=== PATIENT | male | born 1950 | race Caucasian/White ===

== ENCOUNTER 2017-05-08 19:05 | Inpatient (IN) | payer OTHER ==
[2017-05-08 19:10] VITALS: BMI 25.8
--- NOTE | 2017-05-08 20:22 | PDOC ---
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 The patient is nonverbal, but has no complaints and does not appear to be in acute distress. Denies smoking or drinking. Denies allergies, sick contacts, recent travel. PCP: Dr. Shante Alfred <Cynthia Cardenas - Last Filed: 05/08/17 22:56> - General History Source: Patient <Del Rowley - Last Filed: 05/08/17 23:54> - General Chief Complaint: Weakness Stated Complaint: VOMITING,WEAKNESS Time Seen by Provider: 05/08/17 20:19 Past History <Cynthia Cardenas - Last Filed: 05/08/17 22:56> - Past Medical History HTN: Yes Other medical history: MENTAL RETARDATION - Psycho/Social/Smoking Cessation Hx Suicidal Ideation: No Smoking History: Never smoked Hx Alcohol Use: No Drug/Substance Use Hx: No Substance Use Type: None <Del Rowley - Last Filed: 05/08/17 23:54> - Past Medical History Allergies/Adverse Reactions: Allergies Allergy/AdvReac Type Severity Reaction Status Date / Time No Known Allergies Allergy Verified 05/08/17 21:06 Home Medications: Ambulatory Orders NK [No Known Home Medication] 05/08/17 Review of Systems - Review of Systems Able to Perform ROS?: No (mental retardation, nonve) <Cynthia Cardenas - Last Filed: 05/08/17 22:56> *Physical Exam - Vital Signs Last Vital Signs Temp Pulse Resp BP Pulse Ox 97.9 F 114 H 20 138/86 99 05/08/17 19:06 05/08/17 19:06 05/08/17 19:06 05/08/17 19:06 05/08/17 20:04 - Physical Exam Comments: 05/08/17 20:51 GENERAL: Well-appearing, well-nourished. No apparent distress. Alert, awake, interactive. HEENT: Normocephalic, atraumatic. PERRL, EOM intact. CARDIOVASCULAR: Normal S1, S2. Regular rate and rhythm. PULMONARY: Clear to auscultation bilaterally. ABDOMEN: Soft, non-distended, non-tender. EXTREMITIES: Normal ROM in all four extremities. No gross deformities. SKIN: Warm, dry. No rash NEUROLOGICAL: No focal neurological deficits. <Cynthia Cardenas - Last Filed: 05/08/17 22:56> - Vital Signs Last Vital Signs Temp Pulse Resp BP Pulse Ox 97.9 F 114 H 20 138/86 99 05/08/17 19:06 05/08/17 19:06 05/08/17 19:06 05/08/17 19:06 05/08/17 20:04 <Del Rowley - Last Filed: 05/08/17 23:54> Heart Score/ECG Review #1 05/08/17 21:28 Sinus bradycardia with marked sinus arrhythmia at 57 bpm. Minimal voltage criteria for LVH, may be normal variant. <Cynthia Cardenas - Last Filed: 05/08/17 22:56> ED Treatment Course - LABORATORY CBC & Chemistry Diagram: 05/08/17 20:41 05/08/17 20:41 - RADIOLOGY Radiograph Interpretation: 05/08/17 22:56 Chest X-Ray Reported by Dr. Yeison Medina Impression: No acute disease. - Medications Given in the ED: ED Medications Discontinued Medications Generic Name Dose Route Start Last Admin Trade Name Tristinq PRN Reason Stop Dose Admin Ondansetron HCl 4 mg 05/08/17 20:24 05/08/17 20:39 Zofran Injection IVPUSH 05/08/17 20:25 4 mg ONCE STA Administration <Cynthia Cardenas - Last Filed: 05/08/17 22:56> - LABORATORY CBC & Chemistry Diagram: 05/08/17 20:41 05/08/17 20:41 <Del Rowley - Last Filed: 05/08/17 23:54> Medical Decision Making - Medical Decision Making 05/08/17 22:[address] Leann Martino at [phone]. Dr. Shante Alfred is production staff worker and will call back. <Cynthia Cardenas - Last Filed: 05/08/17 22:56> - Medical Decision Making 05/08/17 22:26 Dr. Rowley: The scribe's documentation has been prepared under my direction and personally reviewed by me in its entirery. I confirm that the note above accurately reflects all work, treatment, procedures, and medical decision making performed by me. spoke to Dr. Glynn who will give admitting orders for patient's admission. <Del Rowley - Last Filed: 05/08/17 23:54> *DC/Admit/Observation/Transfer - Attestations Scribe Attestion: 05/08/17 20:51 Documentation prepared by Cynthia Cardenas, acting as medical consultant for Del Rowley DO. <Cynthia Cardenas - Last Filed: 05/08/17 22:56> - Discharge Dispostion Admit: Yes <Del Rowley - Last Filed: 05/08/17 23:54> Diagnosis at time of Disposition: Pancreatitis Qualifiers: Chronicity: acute Pancreatitis type: other Acute pancreatitis complication: unspecified Qualified Code(s): K85.80 - Other acute pancreatitis without necrosis or infection - Discharge Dispostion Condition at time of disposition: Stable - Referrals
[2017-05-08] MEDS ORDERED: SODIUM CHLORIDE 1,000 ML IV STA (20:23)
[2017-05-08] MEDS ORDERED: ONDANSETRON 4 MG/2 ML VIAL IVPUSH STA (20:24)
[2017-05-08] MEDS ORDERED: ONDANSETRON 4 MG/2 ML VIAL ONE (20:53)
[2017-05-08 21:23] LABS: BASOPHIL 0.1 % (0-2.0); MCH 28.9 pg (25.7-33.7); MCHC 33.1 g/dl (32.0-35.9); MEAN CELL VOLUME 87.2 fl (80-96); MEAN PLT VOLUME 10.2 fl (7.5-11.1); NEUTROPHILS 92.9 % (42.8-82.8); PLATELET COUNT 213 K/MM3 (134-434); RDW 12.6 % (11.9-15.9); WHITE BLOOD COUNT 18.5 K/mm3 (4.0-10.0)
[2017-05-08 21:38] LABS: INR 1.11 (0.82-1.09); PROTHROMBIN TIME (PATIENT) 12.2 SEC (9.98-11.88)
[2017-05-08 21:41] LABS: URINE APPEARANCE CLEAR; URINE BILIRUBIN NEGATIVE (NEGATIVE); URINE BLOOD NEGATIVE (NEGATIVE); URINE COLOR YELLOW; URINE GLUCOSE (UA) NEGATIVE (NEGATIVE); URINE KETONE NEGATIVE (NEGATIVE); URINE LEUK ESTERASE NEGATIVE (NEGATIVE); URINE NITRITE NEGATIVE (NEGATIVE); URINE PROTEIN NEGATIVE (NEGATIVE); URINE UROBILINOGEN NEGATIVE mg/dL (0.2-1.0)
[2017-05-08 21:53] LABS: MAGNESIUM 2.4 mg/dL (1.8-2.4)
[2017-05-08 22:03] LABS: ALBUMIN 4.6 g/dl (3.4-5.0); ALK PHOS 100 U/L (45-117); AMYLASE 796 U/L (25-115); ANION GAP 12 (8-16); BILIRUBIN,TOTAL 0.8 mg/dL (0.2-1.0); CALCIUM 9.7 mg/dL (8.5-10.1); CO2 28 mmol/L (21-32); CREATININE 1.1 mg/dL (0.7-1.3); GLUCOSE,RANDOM 141 mg/dL (74-106); SGOT/AST 22 U/L (15-37); SGPT/ALT 16 U/L (12-78); TOT PROT 8.4 g/dl (6.4-8.2); TROPONIN I < 0.02 ng/ml (0.00-0.05)
[2017-05-08] MEDS ORDERED: ACETAMINOPHEN 1000 MG/100 ML VIAL (NON FORMULARY) IVPB PRN (22:23)
[2017-05-08] MEDS ORDERED: morphine CARPU-JECT 4 MG/1 ML DISP.SYRIN IVPUSH PRN (22:23)
[2017-05-08] MEDS ORDERED: DEXTROSE 5%-NORMAL SALINE 1,000 ML IV SCH (22:30)
[2017-05-08] MEDS ORDERED: PANTOPRAZOLE SODIUM 100 ML IVPB SCH (22:30)
[2017-05-08] MEDS ORDERED: LEVOFLOXACIN 500 MG IVPB 100 ML IVPB STA (22:41)
[2017-05-08] MEDS: METRONIDAZOLE 500 MG PREMIXED 100 ML IVPB SCH (22:43)
[2017-05-08] MEDS ORDERED: PANTOPRAZOLE SODIUM 40 MG VIAL ONE (22:46)
[2017-05-08] MEDS ORDERED: METRONIDAZOLE 500 MG PREMIXED 100 ML IVPB ONE (22:46)
[2017-05-08] MEDS ORDERED: LORazepam 2 MG/ML SDV VIAL ONE (22:47)
[2017-05-08 23:12] LABS: ACETONE SERUM NEGATIVE (NEGATIVE)
[2017-05-09] MEDS: LEVOFLOXACIN 500 MG IVPB 100 ML IVPB SCH ×2 (00:31→11:17)
[2017-05-09] MEDS ORDERED: LEVOFLOXACIN 500 MG IVPB 100 ML IVPB ONE (00:39)
[2017-05-09] MEDS: METRONIDAZOLE 500 MG PREMIXED 100 ML IVPB SCH ×3 (03:28→18:02)
--- NOTE | 2017-05-09 08:43 | HP ---
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 The patient is nonverbal, but has no complaints and does not appear to be in acute distress. Denies smoking or drinking. Denies allergies, sick contacts, recent travel. - Past Medical History Cardiovascular: No: CHF, HTN Pulmonary: No: Asthma, COPD - Smoking History Smoking history: Never smoked - Alcohol/Substance Use Hx Alcohol Use: No Home Medications - Allergies Allergies/Adverse Reactions: Allergies Allergy/AdvReac Type Severity Reaction Status Date / Time No Known Allergies Allergy Verified 05/08/17 21:06 - Home Medications Home Medications: Ambulatory Orders NK [No Known Home Medication] 05/08/17 Review of Systems - Review of Systems Cardiovascular: denies: Chest Pain Respiratory: reports: No Symptoms Gastrointestinal: reports: Abdominal Pain, Nausea, Vomiting Genitourinary: reports: No Symptoms Physical Examination Vital Signs: Vital Signs Temperature 98.9 F 05/09/17 04:45 Pulse Rate 89 05/09/17 04:45 Respiratory Rate 18 05/09/17 04:45 Blood Pressure 128/83 05/09/17 04:45 O2 Sat by Pulse Oximetry (%) 97 05/09/17 04:45 Cardiovascular: Yes: Regular Rate and Rhythm, Murmur Respiratory: Yes: Regular, CTA Bilaterally Gastrointestinal: Yes: Normal Bowel Sounds, Soft Edema: No Imaging - Results Cat Scan: Report Reviewed EKG: Report Reviewed Problem List - Problems (1) Choledocholithiasis with acute cholecystitis Assessment/Plan: IV ABX ID/GI AND SURGICAL CONASULT NPO IVF Code(s): K80.42 - CALCULUS OF BILE DUCT W ACUTE CHOLECYSTITIS W/O OBSTRUCTION (2) Gallstone pancreatitis Assessment/Plan: ABOVE Code(s): K85.10 - BILIARY ACUTE PANCREATITIS WITHOUT NECROSIS OR INFECTION (3) Pancreatitis Code(s): K85.90 - ACUTE PANCREATITIS WITHOUT NECROSIS OR INFECTION, UNSP Qualifiers: Chronicity: acute Pancreatitis type: other Acute pancreatitis complication: unspecified Qualified Code(s): K85.80 - Other acute pancreatitis without necrosis or infection; K85.8 - Other acute pancreatitis (4) Arrhythmia Assessment/Plan: TFT ECHO HOLTER Code(s): I49.9 - CARDIAC ARRHYTHMIA, UNSPECIFIED
--- NOTE | 2017-05-09 09:25 | CONSULT ---
Consult Consult Specialty:: Surgery Reason for Consultation:: Gallstone pancreatitis, choledocholithiasis - History of Present Illness Chief Complaint: Fevers, weakness, abdominal pain History of Present Illness: 66 male with history of mental retardation brought by his brother for fevers and weakness Some epigastric pain/discomfort None currently No nausea/vomiting - History Source History Provided By: Family Member, Medical Record Limitations to Obtaining History: Clinical Condition - Past Medical History Additional Medical History: Mental retardation - Alcohol/Substance Use Hx Alcohol Use: No - Smoking History Smoking history: Never smoked Home Medications - Allergies Allergies/Adverse Reactions: Allergies Allergy/AdvReac Type Severity Reaction Status Date / Time No Known Allergies Allergy Verified 05/08/17 21:06 - Home Medications Home Medications: Ambulatory Orders NK [No Known Home Medication] 05/08/17 Family Disease History - Family Disease History Family History: Unremarkable Review of Systems Unable to obtain ROS, reason: Mental retardation Physical Exam Vital Signs: Vital Signs Temperature 98.9 F 05/09/17 04:45 Pulse Rate 89 05/09/17 04:45 Respiratory Rate 18 05/09/17 04:45 Blood Pressure 128/83 05/09/17 04:45 O2 Sat by Pulse Oximetry (%) 97 05/09/17 04:45 Constitutional: Yes: Calm Neck: Yes: Supple Cardiovascular: Yes: Regular Rate and Rhythm Respiratory: Yes: Regular Gastrointestinal: Yes: Soft, Tenderness (Mild RUQ). No: Distention, Tenderness , Rebound Neurological: Yes: Alert Labs: CBCD WBC 18.5 K/mm3 (4.0-10.0) H 05/08/17 20:41 RBC 5.24 M/mm3 (4.00-5.60) 05/08/17 20:41 Hgb 15.1 GM/dL (11.7-16.9) 05/08/17 20:41 Hct 45.7 % (35.4-49) 05/08/17 20:41 MCV 87.2 fl (80-96) 05/08/17 20:41 MCHC 33.1 g/dl (32.0-35.9) 05/08/17 20:41 RDW 12.6 % (11.9-15.9) 05/08/17 20:41 Plt Count 213 K/MM3 (134-434) 05/08/17 20:41 MPV 10.2 fl (7.5-11.1) 05/08/17 20:41 CMP Sodium 140 mmol/L (136-145) 05/08/17 20:41 Potassium 3.9 mmol/L (3.5-5.1) 05/08/17 20:41 Chloride 100 mmol/L (98-107) 05/08/17 20:41 Carbon Dioxide 28 mmol/L (21-32) 05/08/17 20:41 Anion Gap 12 (8-16) 05/08/17 20:41 BUN 14 mg/dL (7-18) 05/08/17 20:41 Creatinine 1.1 mg/dL (0.7-1.3) 05/08/17 20:41 Creat Clearance w eGFR > 60 (>60) 05/08/17 20:41 Calcium 9.7 mg/dL (8.5-10.1) 05/08/17 20:41 Total Bilirubin 0.8 mg/dL (0.2-1.0) 05/08/17 20:41 AST 22 U/L (15-37) 05/08/17 20:41 ALT 16 U/L (12-78) 05/08/17 20:41 Alkaline Phosphatase 100 U/L (45-117) 05/08/17 20:41 Total Protein 8.4 g/dl (6.4-8.2) H 05/08/17 20:41 Albumin 4.6 g/dl (3.4-5.0) 05/08/17 20:41 Amylase 796 Lipase 6453 Imaging - Results Cat Scan: Report Reviewed, Image Reviewed Problem List - Problems (1) Gallstone pancreatitis Code(s): K85.10 - BILIARY ACUTE PANCREATITIS WITHOUT NECROSIS OR INFECTION (2) Choledocholithiasis with acute cholecystitis Code(s): K80.42 - CALCULUS OF BILE DUCT W ACUTE CHOLECYSTITIS W/O OBSTRUCTION Assessment/Plan 66 male with biliary pancreatitis and choledocholithiasis U/S ordered NPO IV fluids Antibiotics GI for ERCP Will need cholecystectomy once CBD stone removed and pancreatitis resolves Thank you
[2017-05-09 09:41] LABS: BASOPHIL 0.1 % (0-2.0); EOSINOPHIL 0.1 % (0-4.5); MCH 29.7 pg (25.7-33.7); MCHC 33.9 g/dl (32.0-35.9); MEAN CELL VOLUME 87.4 fl (80-96); MEAN PLT VOLUME 9.8 fl (7.5-11.1); NEUTROPHILS 88.2 % (42.8-82.8); PLATELET COUNT 186 K/MM3 (134-434); RDW 12.6 % (11.9-15.9); WHITE BLOOD COUNT 13.4 K/mm3 (4.0-10.0)
[2017-05-09] MEDS ORDERED: LEVOFLOXACIN 500 MG IVPB 100 ML IVPB SCH (10:00)
[2017-05-09 10:08] LABS: ALBUMIN 3.5 g/dl (3.4-5.0); ALK PHOS 92 U/L (45-117); AMYLASE 437 U/L (25-115); ANION GAP 7 (8-16); BILIRUBIN,TOTAL 0.7 mg/dL (0.2-1.0); CALCIUM 8.8 mg/dL (8.5-10.1); CO2 26 mmol/L (21-32); CREATININE 0.9 mg/dL (0.7-1.3); GLUCOSE,RANDOM 135 mg/dL (74-106); SGOT/AST 39 U/L (15-37); SGPT/ALT 28 U/L (12-78); TOT PROT 6.9 g/dl (6.4-8.2)
[2017-05-09 10:22] LABS: CHOLESTEROL 99 mg/dL (50-200); LDL CHOLESTEROL (ONLY SJRH) 57 mg/dL (5-100)
--- NOTE | 2017-05-09 11:52 | EKG ---
Test Reason : Blood Pressure : / mmHG Vent. Rate : 057 BPM Atrial Rate : 057 BPM P-R Int : 140 ms QRS Dur : 098 ms QT Int : 470 ms P-R-T Axes : 047 006 014 degrees QTc Int : 457 ms SINUS BRADYCARDIA WITH MARKED SINUS ARRHYTHMIA MINIMAL VOLTAGE CRITERIA FOR LVH, MAY BE NORMAL VARIANT BORDERLINE ECG NO PREVIOUS ECGS AVAILABLE Confirmed by LUIS ARMANDO RODRIGUEZ MD ([id number]) on 05/09/2017 11:52:24 AM Referred By: Confirmed By:LUIS ARMANDO RODRIGUEZ MD
[2017-05-09] MEDS ORDERED: PANTOPRAZOLE SODIUM 40 MG VIAL ONE ×2 (13:02→21:25)
[2017-05-09] MEDS ORDERED: SODIUM CHLORIDE 100 ML IVPB ONE ×2 (13:02→21:26)
[2017-05-09] MEDS: PANTOPRAZOLE SODIUM 40 MG in SODIUM CHLORIDE 100 ML IVPB SCH ×2 (13:07→21:43)
[2017-05-09] MEDS ORDERED: CEFTRIAXONE 50 ML IVPB SCH (14:15)
[2017-05-09] MEDS ORDERED: CEFTRIAXONE 1 GM in DEXTROSE 5%-WATER - 50 ML IVPB SCH (14:50)
[2017-05-09] MEDS ORDERED: cefTRIAXone SODIUM 1 GM VIAL ONE (14:52)
[2017-05-09] MEDS ORDERED: DEXTROSE 5%-WATER - 50 ML IVPB ONE (14:53)
[2017-05-09 15:00] LABS: FREE T4 1.51 ng/dl (0.76-1.16)
--- NOTE | 2017-05-09 17:30 | CON.GI ---
Consult Consult Specialty:: gastroenterology Referred by:: Dr Leann Martino - History of Present Illness History of Present Illness: 66 y/o male with mental retasrdation was admitted because of abdominal pain and vomiting. Catscan was done which revealed a 2.5cm CBD associated with cholelithiasis. Tonight the patient feels better. - Past Medical History Cardio/Vascular: No: CHF, HTN Pulmonary: No: Asthma, COPD Additional Medical History: Mental retardation - Alcohol/Substance Use Hx Alcohol Use: No - Smoking History Smoking history: Never smoked Home Medications - Allergies Allergies/Adverse Reactions: Allergies Allergy/AdvReac Type Severity Reaction Status Date / Time No Known Allergies Allergy Verified 05/08/17 21:06 - Home Medications Home Medications: Ambulatory Orders NK [No Known Home Medication] 05/08/17 Review of Systems Unable to obtain ROS, reason: mental retardation Physical Exam-GI Vital Signs: Vital Signs Temperature 99.3 F 05/09/17 15:39 Pulse Rate 88 05/09/17 15:39 Respiratory Rate 18 05/09/17 15:39 Blood Pressure 127/82 05/09/17 10:00 O2 Sat by Pulse Oximetry (%) 97 05/09/17 09:00 Constitutional: Yes: Well Nourished Eyes: Yes: Conjunctiva Clear HENT: Yes: Atraumatic Neck: Yes: Trachea Midline Cardiovascular: Yes: Regular Rate and Rhythm ...Palpate: Yes: Soft. No: Firm/Rigid, Guarding, Hepatomegaly, Mass, Pulsatile Mass, Splenomegaly, Tenderness Labs: CBC, BMP 05/09/17 08:50 05/09/17 08:50 INR, PTT INR 1.11 (0.82-1.09) 05/08/17 20:41 Imaging - Results Cat Scan: Image Reviewed Problem List - Problems (1) Dilated bile duct Assessment/Plan: r/o ampullary mass, cbd stone R> for ERC , risk of bleeding, pancreatitis were discussed with patient s brother Code(s): K83.8 - OTHER SPECIFIED DISEASES OF BILIARY TRACT
[2017-05-09 18:55] LABS: URINE APPEARANCE CLEAR; URINE BILIRUBIN NEGATIVE (NEGATIVE); URINE BLOOD 1+ (NEGATIVE); URINE COLOR YELLOW; URINE GLUCOSE (UA) NEGATIVE (NEGATIVE); URINE KETONE NEGATIVE (NEGATIVE); URINE LEUK ESTERASE TRACE (NEGATIVE); URINE NITRITE NEGATIVE (NEGATIVE); URINE PROTEIN NEGATIVE (NEGATIVE); URINE UROBILINOGEN NEGATIVE mg/dL (0.2-1.0)
[2017-05-09 19:06] LABS: URINE MUCUS RARE; URINE RBC 3 /hpf (0-3); URINE WBC 2 /hpf (3-5)
[2017-05-09] MEDS: D5-1/2NS+30 MEQ KCL - 1,000 ML IV SCH (22:35)
[2017-05-10] MEDS: METRONIDAZOLE 500 MG PREMIXED 100 ML IVPB SCH ×2 (01:28→10:27)
--- NOTE | 2017-05-10 08:07 | CONS ---
DATE OF CONSULTATION: HISTORY: This is a 66-year-old male who I am asked to see for evaluation of gallstone pancreatitis and choledocholithiasis. The patient was admitted with a chief complaint of fevers, generalized weakness, and abdominal pain mostly in the epigastric area. He had no associated nausea or vomiting. He had an admitting white count of 18.5 on admission in the absence of any temperature. He was seen in consultation by Dr. Pereira and had an abdominal CT scan performed, which showed moderate acute pancreatitis with secondary duodenal inflammation and probable mild cholecystitis. Significant common bile duct distention with a moderate degree of intrahepatic biliary dilatation was also noted. An abdominal ultrasound showed multiple gallstones in the gallbladder with intrahepatic biliary dilatation. The patient was empirically placed on levofloxacin and metronidazole. I am asked to see him for further evaluation and treatment. He has had no fever since admission. PAST MEDICAL HISTORY: Includes hypertension, mental retardation. MEDICATIONS: At home, none. ALLERGIES: None known. SOCIAL HISTORY: Lives with his family. Nonsmoker. No history of substance abuse. FAMILY HISTORY: Unobtainable. REVIEW OF SYSTEMS: Respiratory: No cough or shortness of breath. Cardiac: No chest pain or palpitations. Gastrointestinal: Abdominal pain as noted. Genitourinary: No dysuria, hematuria. PHYSICAL EXAMINATION: Vital Signs: The patient is afebrile. The temperature is 98.9, pulse 89, blood pressure 128/83, respirations 18. Neck: Supple. Lungs: Clear to P and A. Heart: S1, S2. Regular rhythm without audible murmur. Abdomen: Tenderness mild in the right upper quadrant. No distention. No rebound tenderness. No organomegaly. Extremities: No clubbing, cyanosis, or edema. The white count is 18.5, hemoglobin 15.1, platelets 213. INR 1.1, BUN 14, creatinine 0.9. Liver enzymes within normal limits. Lipase 2400, on admission 6400. Total amylase 756. Urine screening negative. Two sets of blood cultures pending. ASSESSMENT: A 66-year-old male who presents with abdominal pain, fever, leukocytosis. Clinical diagnosis: Gallstone pancreatitis with acute cholecystitis. PLAN: Empiric antibiotic therapy with cefoxitin and metronidazole. Plan for ERCP and ultimately cholecystectomy once common bile duct stone removed and pancreatitis resolves. VEENA BALES M.D. CLAUS/[id number]
[2017-05-10 08:27] LABS: ALBUMIN 3.2 g/dl (3.4-5.0); AMYLASE 182 U/L (25-115); ANION GAP 9 (8-16); CALCIUM 8.3 mg/dL (8.5-10.1); CO2 26 mmol/L (21-32); GLUCOSE,RANDOM 117 mg/dL (74-106)
[2017-05-10 08:30] LABS: ALK PHOS 79 U/L (45-117); BILIRUBIN,TOTAL 0.9 mg/dL (0.2-1.0); CREATININE 0.9 mg/dL (0.7-1.3); SGOT/AST 22 U/L (15-37); SGPT/ALT 22 U/L (12-78); TOT PROT 6.3 g/dl (6.4-8.2)
--- NOTE | 2017-05-10 08:48 | PN ---
Progress Note, Physician - Current Medication List Current Medications: Active Medications Pantoprazole Sodium 40 mg/ (Sodium Chloride) 100 mls @ 200 mls/hr IVPB BID LUBNA Last Admin: 05/09/17 21:43 Dose: 200 mls/hr Metronidazole (Flagyl 500mg Premixed Ivpb -) 100 mls @ 100 mls/hr IVPB Q8H-IV LUBNA Last Admin: 05/10/17 01:28 Dose: 100 mls/hr Ceftriaxone Sodium 1 gm/ (Dextrose) 50 mls @ 100 mls/hr IVPB DAILY LUBNA Potassium Chloride/Dextrose/Sod Cl (D5-1/2ns+30 Meq Kcl -) 1,000 mls @ 100 mls/ hr IV ASDIR LUBNA Last Admin: 05/09/17 22:35 Dose: 100 mls/hr Lorazepam (Ativan Injection -) 1 mg IVPUSH Q6H PRN PRN Reason: ANXIETY Morphine Sulfate (Morphine Injection -) 4 mg IVPUSH Q6H PRN PRN Reason: PAIN - Objective Vital Signs: Vital Signs Temperature 98.9 F 05/10/17 06:11 Pulse Rate 74 05/10/17 06:11 Respiratory Rate 20 05/10/17 06:11 Blood Pressure 124/82 05/10/17 06:11 O2 Sat by Pulse Oximetry (%) 98 05/09/17 21:00 Cardiovascular: Yes: Regular Rate and Rhythm Respiratory: Yes: Regular, CTA Bilaterally Gastrointestinal: Yes: Normal Bowel Sounds, Soft Labs: CBC, BMP 05/10/17 06:40 INR, PTT INR 1.11 (0.82-1.09) 05/08/17 20:41 Problem List - Problems (1) Choledocholithiasis with acute cholecystitis Assessment/Plan: IV ABX ID/GI AND SURGICAL CONASULT NPO IVF Code(s): K80.42 - CALCULUS OF BILE DUCT W ACUTE CHOLECYSTITIS W/O OBSTRUCTION (2) Gallstone pancreatitis Assessment/Plan: ABOVE ERCP Code(s): K85.10 - BILIARY ACUTE PANCREATITIS WITHOUT NECROSIS OR INFECTION (3) Pancreatitis Assessment/Plan: ABOVE Code(s): K85.90 - ACUTE PANCREATITIS WITHOUT NECROSIS OR INFECTION, UNSP Qualifiers: Chronicity: acute Pancreatitis type: other Acute pancreatitis complication: unspecified Qualified Code(s): K85.80 - Other acute pancreatitis without necrosis or infection; K85.8 - Other acute pancreatitis (4) Arrhythmia Assessment/Plan: TFT ECHO HOLTER Code(s): I49.9 - CARDIAC ARRHYTHMIA, UNSPECIFIED
[2017-05-10 09:22] LABS: BASOPHIL 0.3 % (0-2.0); EOSINOPHIL 0.2 % (0-4.5); MCH 29.9 pg (25.7-33.7); MCHC 33.9 g/dl (32.0-35.9); MEAN PLT VOLUME 10.4 fl (7.5-11.1); NEUTROPHILS 81.2 % (42.8-82.8); PLATELET COUNT 172 K/MM3 (134-434); RDW 12.9 % (11.9-15.9); WHITE BLOOD COUNT 9.9 K/mm3 (4.0-10.0)
--- NOTE | 2017-05-10 09:35 | PN ---
Progress Note (short form) - Note Progress Note: no complaints Vital Signs Period Temp Pulse Resp BP Sys/Muhammad Pulse Ox Last 24 Hr 98.8 F-99.3 F 74-89 18-20 120-127/74-82 98 cor-rrr lungs clear abd soft,nt ext no edema CBC, BMP 05/10/17 06:40 05/10/17 06:40 Laboratory Tests 05/10/17 06:40 Total Amylase 182 H D Lipase 602 H blood cultures pending a/p for ercp today labs improved cholycystitis gallstone pancreatitis choledocholithiasis continue rocephin/flagyl
[2017-05-10] MEDS ORDERED: DEXTROSE 5%-WATER - 50 ML IVPB ONE (10:21)
[2017-05-10] MEDS ORDERED: cefTRIAXone SODIUM 1 GM VIAL ONE (10:21)
[2017-05-10] MEDS ORDERED: SODIUM CHLORIDE 100 ML IVPB ONE ×2 (10:22→21:33)
[2017-05-10] MEDS ORDERED: PANTOPRAZOLE SODIUM 40 MG VIAL ONE ×2 (10:22→21:32)
[2017-05-10] MEDS: PANTOPRAZOLE SODIUM 40 MG in SODIUM CHLORIDE 100 ML IVPB SCH ×2 (10:27→21:34)
--- NOTE | 2017-05-10 10:48 | PN ---
Progress Note (short form) - Note Progress Note: No acute events No pain No nausea Vital Signs Period Temp Pulse Resp BP Sys/Muhammad Pulse Ox Last 24 Hr 98.9 F-99.3 F 74-88 18-20 120-125/74-82 98 Abd soft, NT, no rebound CBC,CMP WBC 9.9 K/mm3 (4.0-10.0) 05/10/17 06:40 RBC 4.43 M/mm3 (4.00-5.60) 05/10/17 06:40 Hgb 13.2 GM/dL (11.7-16.9) 05/10/17 06:40 Hct 38.9 % (35.4-49) 05/10/17 06:40 MCV 88.0 fl (80-96) 05/10/17 06:40 MCH 29.9 pg (25.7-33.7) 05/10/17 06:40 MCHC 33.9 g/dl (32.0-35.9) 05/10/17 06:40 RDW 12.9 % (11.9-15.9) 05/10/17 06:40 Plt Count 172 K/MM3 (134-434) 05/10/17 06:40 MPV 10.4 fl (7.5-11.1) 05/10/17 06:40 Neutrophils % 81.2 % (42.8-82.8) 05/10/17 06:40 Lymphocytes % 11.4 % (8-40) D 05/10/17 06:40 Monocytes % 6.9 % (3.8-10.2) 05/10/17 06:40 Eosinophils % 0.2 % (0-4.5) D 05/10/17 06:40 Basophils % 0.3 % (0-2.0) 05/10/17 06:40 Sodium 140 mmol/L (136-145) 05/10/17 06:40 Potassium 3.4 mmol/L (3.5-5.1) L 05/10/17 06:40 Chloride 105 mmol/L (98-107) 05/10/17 06:40 Carbon Dioxide 26 mmol/L (21-32) 05/10/17 06:40 Anion Gap 9 (8-16) 05/10/17 06:40 BUN 14 mg/dL (7-18) 05/10/17 06:40 Creatinine 0.9 mg/dL (0.7-1.3) 05/10/17 06:40 Creat Clearance w eGFR > 60 (>60) 05/10/17 06:40 Random Glucose 117 mg/dL (74-106) H 05/10/17 06:40 Hemoglobin A1c % 6.0 % (4.8-6.0) 05/09/17 08:50 Calcium 8.3 mg/dL (8.5-10.1) L 05/10/17 06:40 Magnesium 2.4 mg/dL (1.8-2.4) 05/08/17 20:41 Total Bilirubin 0.9 mg/dL (0.2-1.0) D 05/10/17 06:40 AST 22 U/L (15-37) D 05/10/17 06:40 ALT 22 U/L (12-78) D 05/10/17 06:40 Alkaline Phosphatase 79 U/L (45-117) 05/10/17 06:40 Creatine Kinase 94 IU/L (39-308) 05/08/17 20:41 Troponin I < 0.02 ng/ml (0.00-0.05) 05/08/17 20:41 Total Protein 6.3 g/dl (6.4-8.2) L 05/10/17 06:40 Albumin 3.2 g/dl (3.4-5.0) L 05/10/17 06:40 Triglycerides 49 mg/dL (35-160) 05/09/17 08:50 Cholesterol 99 mg/dL (50-200) 05/09/17 08:50 Total LDL Cholesterol 57 mg/dL (5-100) 05/09/17 08:50 HDL Cholesterol 31 mg/dL (40-60) L 05/09/17 08:50 Total Amylase 182 U/L (25-115) H D 05/10/17 06:40 Lipase 602 U/L (73-393) H 05/10/17 06:40 TSH 1.30 uIU/ml (0.358-3.74) 05/09/17 08:50 Free T4 1.51 ng/dl (0.76-1.16) H 05/09/17 08:50 NPO Antibiotics Serial LFTs/lipase GI for ERCP Problem List - Problems (1) Gallstone pancreatitis Code(s): K85.10 - BILIARY ACUTE PANCREATITIS WITHOUT NECROSIS OR INFECTION (2) Choledocholithiasis with acute cholecystitis Code(s): K80.42 - CALCULUS OF BILE DUCT W ACUTE CHOLECYSTITIS W/O OBSTRUCTION
[2017-05-10] MEDS: D5-1/2NS+30 MEQ KCL - 1,000 ML IV SCH ×2 (13:56→21:19)
[2017-05-10] MEDS ORDERED: PROPOFOL 20 ML ONE (17:14)
[2017-05-10] MEDS ORDERED: LIDOCAINE HCL/PF 2% SDV 5ML VIAL ONE (17:15)
--- NOTE | 2017-05-10 18:32 | PN ---
Progress Note (short form) - Note Progress Note: PREOP: dilated CBD r/o ampullary mass, CBD stone POT op: ampullary stenoses Procedure: ERC with sphincterotomy , brushings ampullary stenoses,balloon sweeping, fluoroscopy R> for cholecystectomy await ampulary cytology Problem List - Problems (1) Dilated bile duct Code(s): K83.8 - OTHER SPECIFIED DISEASES OF BILIARY TRACT
[2017-05-10] MEDS ORDERED: ONDANSETRON 4 MG/2 ML VIAL IVPUSH PRN (18:35)
[2017-05-10] MEDS ORDERED: morphine CARPU-JECT 4 MG/1 ML DISP.SYRIN IVPUSH PRN (18:46)
[2017-05-10] MEDS ORDERED: LORazepam 2 MG/ML SDV VIAL IVPUSH PRN (18:46)
[2017-05-11] MEDS: METRONIDAZOLE 500 MG PREMIXED 100 ML IVPB SCH ×4 (01:45→18:11)
[2017-05-11] MEDS ORDERED: cefTRIAXone SODIUM 1 GM VIAL ONE (08:32)
[2017-05-11] MEDS ORDERED: DEXTROSE 5%-WATER - 50 ML IVPB ONE (08:33)
--- NOTE | 2017-05-11 09:19 | PN ---
Progress Note (short form) - Note Progress Note: POD #1 - s/p ERCP with sphincterotomy under general anesthesia. Pt. doing well, resting comfortably in bed. VSS. No apparent anesthetic complications noted. Continue current care.
--- NOTE | 2017-05-11 09:58 | PN ---
Progress Note (short form) - Note Progress Note: no complaints ate breakfast no vomiting no abdominal pain s/p ercp yesterday Vital Signs Period Temp Pulse Resp BP Sys/Muhammad Pulse Ox Last 24 Hr 97.9 F-99.4 F 63-83 14-20 119-131/77-91 95-97 cor-rrr llungs clear abd soft,nt ext no edema CBC, BMP 05/10/17 06:40 05/10/17 06:40 Microbiology 05/09/17 09:31 Blood - Peripheral Venous Blood Culture - Preliminary NO GROWTH OBTAINED AFTER 48 HOURS, INCUBATION TO CONTINUE FOR 3 DAYS. 05/09/17 08:50 Blood - Peripheral Venous Blood Culture - Preliminary NO GROWTH OBTAINED AFTER 48 HOURS, INCUBATION TO CONTINUE FOR 3 DAYS. 05/09/17 18:00 Urine - Urine Clean Catch Urine Culture - Final NO GROWTH OBTAINED a/p s/p ercp yesterday with sphicterotomy for ampullary stenosis labs improved cholycystitis gallstone pancreatitis choledocholithiasis continue rocephin/flagyl cultures negative
[2017-05-11] MEDS: CEFTRIAXONE 1 GM in DEXTROSE 5%-WATER - 50 ML IVPB SCH (10:17)
[2017-05-11] MEDS ORDERED: SODIUM CHLORIDE 100 ML IVPB ONE ×2 (10:21→21:38)
[2017-05-11] MEDS ORDERED: PANTOPRAZOLE SODIUM 40 MG VIAL ONE ×2 (10:21→21:38)
[2017-05-11] MEDS: PANTOPRAZOLE SODIUM 40 MG in SODIUM CHLORIDE 100 ML IVPB SCH ×2 (10:26→22:57)
--- NOTE | 2017-05-11 11:00 | PN ---
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 Brushings sent Vital Signs Period Temp Pulse Resp BP Sys/Muhammad Pulse Ox Last 24 Hr 97.9 F-99.4 F 63-83 14-20 119-131/77-91 95-97 CBC,CMP WBC 9.9 K/mm3 (4.0-10.0) 05/10/17 06:40 RBC 4.43 M/mm3 (4.00-5.60) 05/10/17 06:40 Hgb 13.2 GM/dL (11.7-16.9) 05/10/17 06:40 Hct 38.9 % (35.4-49) 05/10/17 06:40 MCV 88.0 fl (80-96) 05/10/17 06:40 MCH 29.9 pg (25.7-33.7) 05/10/17 06:40 MCHC 33.9 g/dl (32.0-35.9) 05/10/17 06:40 RDW 12.9 % (11.9-15.9) 05/10/17 06:40 Plt Count 172 K/MM3 (134-434) 05/10/17 06:40 MPV 10.4 fl (7.5-11.1) 05/10/17 06:40 Neutrophils % 81.2 % (42.8-82.8) 05/10/17 06:40 Lymphocytes % 11.4 % (8-40) D 05/10/17 06:40 Monocytes % 6.9 % (3.8-10.2) 05/10/17 06:40 Eosinophils % 0.2 % (0-4.5) D 05/10/17 06:40 Basophils % 0.3 % (0-2.0) 05/10/17 06:40 Sodium 140 mmol/L (136-145) 05/10/17 06:40 Potassium 3.4 mmol/L (3.5-5.1) L 05/10/17 06:40 Chloride 105 mmol/L (98-107) 05/10/17 06:40 Carbon Dioxide 26 mmol/L (21-32) 05/10/17 06:40 Anion Gap 9 (8-16) 05/10/17 06:40 BUN 14 mg/dL (7-18) 05/10/17 06:40 Creatinine 0.9 mg/dL (0.7-1.3) 05/10/17 06:40 Creat Clearance w eGFR > 60 (>60) 05/10/17 06:40 Random Glucose 117 mg/dL (74-106) H 05/10/17 06:40 Hemoglobin A1c % 6.0 % (4.8-6.0) 05/09/17 08:50 Calcium 8.3 mg/dL (8.5-10.1) L 05/10/17 06:40 Magnesium 2.4 mg/dL (1.8-2.4) 05/08/17 20:41 Total Bilirubin 0.9 mg/dL (0.2-1.0) D 05/10/17 06:40 AST 22 U/L (15-37) D 05/10/17 06:40 ALT 22 U/L (12-78) D 05/10/17 06:40 Alkaline Phosphatase 79 U/L (45-117) 05/10/17 06:40 Creatine Kinase 94 IU/L (39-308) 05/08/17 20:41 Troponin I < 0.02 ng/ml (0.00-0.05) 05/08/17 20:41 Total Protein 6.3 g/dl (6.4-8.2) L 05/10/17 06:40 Albumin 3.2 g/dl (3.4-5.0) L 05/10/17 06:40 Triglycerides 49 mg/dL (35-160) 05/09/17 08:50 Cholesterol 99 mg/dL (50-200) 05/09/17 08:50 Total LDL Cholesterol 57 mg/dL (5-100) 05/09/17 08:50 HDL Cholesterol 31 mg/dL (40-60) L 05/09/17 08:50 Total Amylase 182 U/L (25-115) H D 05/10/17 06:40 Lipase 602 U/L (73-393) H 05/10/17 06:40 TSH 1.30 uIU/ml (0.358-3.74) 05/09/17 08:50 Free T4 1.51 ng/dl (0.76-1.16) H 05/09/17 08:50 Await brushing path Will plan cholecystectomy pending path results Problem List - Problems (1) Gallstone pancreatitis Code(s): K85.10 - BILIARY ACUTE PANCREATITIS WITHOUT NECROSIS OR INFECTION (2) Choledocholithiasis with acute cholecystitis Code(s): K80.42 - CALCULUS OF BILE DUCT W ACUTE CHOLECYSTITIS W/O OBSTRUCTION
[2017-05-11 11:38] LABS: MCH 29.4 pg (25.7-33.7); MCHC 33.3 g/dl (32.0-35.9); MEAN CELL VOLUME 88.2 fl (80-96); MEAN PLT VOLUME 10.2 fl (7.5-11.1); PLATELET COUNT 206 K/MM3 (134-434); RDW 12.5 % (11.9-15.9); WHITE BLOOD COUNT 13.1 K/mm3 (4.0-10.0)
[2017-05-11 11:57] LABS: ALBUMIN 3.7 g/dl (3.4-5.0); ALK PHOS 95 U/L (45-117); ANION GAP 12 (8-16); BILIRUBIN,TOTAL 0.6 mg/dL (0.2-1.0); CALCIUM 8.9 mg/dL (8.5-10.1); CO2 25 mmol/L (21-32); CREATININE 1.1 mg/dL (0.7-1.3); GLUCOSE,RANDOM 180 mg/dL (74-106); SGOT/AST 29 U/L (15-37); SGPT/ALT 26 U/L (12-78); TOT PROT 7.4 g/dl (6.4-8.2)
--- NOTE | 2017-05-11 14:24 | PN ---
Progress Note, Physician Chief Complaint: IN BED AWAKE NAD THIS IS MY FIRST ENCOUNTER WITH THIS PATIENT CHART AND EVENTS REVIEWED - Current Medication List Current Medications: Active Medications Potassium Chloride/Dextrose/Sod Cl (D5-1/2ns+30 Meq Kcl -) 1,000 mls @ 100 mls/ hr IV [facility] Last Admin: 05/10/17 21:19 Dose: Not Given Metronidazole (Flagyl 500mg Premixed Ivpb -) 100 mls @ 100 mls/hr IVPB Q8H-IV [facility] Last Admin: 05/11/17 10:13 Dose: 100 mls/hr Pantoprazole Sodium 40 mg/ (Sodium Chloride) 100 mls @ 200 mls/hr IVPB BID [facility] Last Admin: 05/11/17 10:26 Dose: 200 mls/hr Ceftriaxone Sodium 1 gm/ (Dextrose) 50 mls @ 100 mls/hr IVPB DAILY [facility] Last Admin: 05/11/17 10:17 Dose: 100 mls/hr Lorazepam (Ativan Injection -) 1 mg IVPUSH Q6H PRN PRN Reason: ANXIETY Morphine Sulfate (Morphine Injection -) 4 mg IVPUSH Q6H PRN PRN Reason: PAIN Potassium Chloride (K-Dur -) 20 meq PO ONCE ONE Stop: 05/11/17 14:22 - Objective Vital Signs: Vital Signs Temperature 98.4 F 05/11/17 06:35 Pulse Rate 83 05/11/17 06:35 Respiratory Rate 20 05/11/17 06:35 Blood Pressure 122/84 05/11/17 06:35 O2 Sat by Pulse Oximetry (%) 96 05/10/17 21:00 Constitutional: Yes: No Distress Eyes: Yes: WNL HENT: Yes: WNL Neck: Yes: WNL Cardiovascular: Yes: WNL Respiratory: Yes: WNL Gastrointestinal: Yes: WNL ...Rectal Exam: Yes: WNL Genitourinary: Yes: WNL Musculoskeletal: Yes: WNL Extremities: Yes: WNL Edema: No Peripheral Pulses WNL: Yes Integumentary: Yes: WNL Wound/Incision: Yes: Clean/Dry Neurological: Yes: WNL ...Motor Strength: WNL Psychiatric: Yes: WNL Labs: CBC, BMP 05/11/17 10:45 05/11/17 11:15 INR, PTT INR 1.11 (0.82-1.09) 05/08/17 20:41 Problem List - Problems (1) Choledocholithiasis with acute cholecystitis Code(s): K80.42 - CALCULUS OF BILE DUCT W ACUTE CHOLECYSTITIS W/O OBSTRUCTION (2) Dilated bile duct Code(s): K83.8 - OTHER SPECIFIED DISEASES OF BILIARY TRACT (3) Gallstone pancreatitis Code(s): K85.10 - BILIARY ACUTE PANCREATITIS WITHOUT NECROSIS OR INFECTION Assessment/Plan CHART REVIEWED KCL REPLETED DIET TOLERATED OOB TO CHAIR LABS FOR AM
[2017-05-11] MEDS ORDERED: POTASSIUM CHLORIDE TABS 20 MEQ TABLET.ER (FP) PO ONE (14:45)
--- NOTE | 2017-05-11 15:11 | PN ---
GI Progress Note Subjective: s/p ERCP, no abdominal pain no nausea and no vomiting, tolerated diet, WBC 13, 000 - Objective Vital Signs: Vital Signs Temperature 97.7 F 05/11/17 14:35 Pulse Rate 96 H 05/11/17 14:35 Respiratory Rate 20 05/11/17 14:35 Blood Pressure 134/82 05/11/17 14:35 O2 Sat by Pulse Oximetry (%) 96 05/10/17 21:00 Constitutional: Well Nourished Eyes: Yes: Conjunctiva Clear Neck: Yes: Supple Cardiovascular: Yes: Regular Rate and Rhythm Respiratory: Yes: CTA Bilaterally ...Palpate: Yes: Soft. No: Firm/Rigid, Guarding, Hepatomegaly, Pulsatile Mass, Splenomegaly, Tenderness Labs: CBC, BMP 05/11/17 10:45 05/11/17 11:15 INR, PTT INR 1.11 (0.82-1.09) 05/08/17 20:41 Problem List - Problems (1) Dilated bile duct Assessment/Plan: secondary to Ampullary stenoses R> await cytology results for cholecystectomy Code(s): K83.8 - OTHER SPECIFIED DISEASES OF BILIARY TRACT
[2017-05-11] MEDS: D5-1/2NS+30 MEQ KCL - 1,000 ML IV SCH (18:10)
[2017-05-12] MEDS: METRONIDAZOLE 500 MG PREMIXED 100 ML IVPB SCH ×3 (02:14→17:27)
[2017-05-12 08:02] LABS: MCH 29.9 pg (25.7-33.7); MCHC 34.4 g/dl (32.0-35.9); MEAN CELL VOLUME 86.9 fl (80-96); PLATELET COUNT 161 K/MM3 (134-434); RDW 12.5 % (11.9-15.9); WHITE BLOOD COUNT 7.4 K/mm3 (4.0-10.0)
[2017-05-12 08:51] LABS: ALBUMIN 3.1 g/dl (3.4-5.0); ALK PHOS 72 U/L (45-117); ANION GAP 6 (8-16); BILIRUBIN,TOTAL 0.5 mg/dL (0.2-1.0); CALCIUM 8.2 mg/dL (8.5-10.1); CO2 28 mmol/L (21-32); CREATININE 0.9 mg/dL (0.7-1.3); GLUCOSE,RANDOM 105 mg/dL (74-106); MAGNESIUM 2.1 mg/dL (1.8-2.4); SGOT/AST 23 U/L (15-37); SGPT/ALT 19 U/L (12-78); TOT PROT 6.3 g/dl (6.4-8.2)
--- NOTE | 2017-05-12 09:24 | PN ---
Progress Note, Physician Chief Complaint: AWAKE ALERT EATING BREAKFAST COUGHING - Current Medication List Current Medications: Active Medications Potassium Chloride/Dextrose/Sod Cl (D5-1/2ns+30 Meq Kcl -) 1,000 mls @ 100 mls/ hr IV [facility] Last Admin: 05/11/17 18:10 Dose: 100 mls/hr Metronidazole (Flagyl 500mg Premixed Ivpb -) 100 mls @ 100 mls/hr IVPB Q8H-IV [facility] Last Admin: 05/12/17 02:14 Dose: 100 mls/hr Pantoprazole Sodium 40 mg/ (Sodium Chloride) 100 mls @ 200 mls/hr IVPB BID [facility] Last Admin: 05/11/17 22:57 Dose: 200 mls/hr Ceftriaxone Sodium 1 gm/ (Dextrose) 50 mls @ 100 mls/hr IVPB DAILY [facility] Last Admin: 05/11/17 10:17 Dose: 100 mls/hr Lorazepam (Ativan Injection -) 1 mg IVPUSH Q6H PRN PRN Reason: ANXIETY Morphine Sulfate (Morphine Injection -) 4 mg IVPUSH Q6H PRN PRN Reason: PAIN - Objective Vital Signs: Vital Signs Temperature 97.7 F 05/12/17 06:36 Pulse Rate 77 05/12/17 06:36 Respiratory Rate 18 05/12/17 06:36 Blood Pressure 121/81 05/12/17 06:36 O2 Sat by Pulse Oximetry (%) 96 05/11/17 21:00 Constitutional: Yes: No Distress Eyes: Yes: WNL HENT: Yes: WNL Neck: Yes: WNL Cardiovascular: Yes: WNL Respiratory: Yes: Cough, Rhonchi Gastrointestinal: Yes: Tenderness Genitourinary: Yes: WNL Musculoskeletal: Yes: WNL Extremities: Yes: WNL Edema: No Peripheral Pulses WNL: Yes Integumentary: Yes: WNL Wound/Incision: Yes: Clean/Dry Neurological: Yes: WNL ...Motor Strength: WNL Psychiatric: Yes: WNL Labs: CBC, BMP 05/12/17 06:20 05/12/17 06:20 INR, PTT INR 1.11 (0.82-1.09) 05/08/17 20:41 Problem List - Problems (1) Choledocholithiasis with acute cholecystitis Code(s): K80.42 - CALCULUS OF BILE DUCT W ACUTE CHOLECYSTITIS W/O OBSTRUCTION (2) Dilated bile duct Code(s): K83.8 - OTHER SPECIFIED DISEASES OF BILIARY TRACT (3) Gallstone pancreatitis Code(s): K85.10 - BILIARY ACUTE PANCREATITIS WITHOUT NECROSIS OR INFECTION Assessment/Plan NO NEED FOR CT SCAN OF ABD WITH CONTRAST LAPCHOL WHEN READY LABS REVIEWED KCL REPLETED SWALLOW EVAL NEBULIZERS
--- NOTE | 2017-05-12 09:45 | PN ---
Progress Note (short form) - Note Progress Note: no complaints ate breakfast no vomiting no abdominal pain Vital Signs Period Temp Pulse Resp BP Sys/Muhammad Pulse Ox Last 24 Hr 97.7 F-98.5 F 72-96 18-20 121-134/78-82 96-96 cor-rrr lungs clear abd soft,nt ext no edema CBC, BMP 05/12/17 06:20 05/12/17 06:20 Microbiology 05/09/17 09:31 Blood - Peripheral Venous Blood Culture - Preliminary NO GROWTH OBTAINED AFTER 72 HOURS, INCUBATION TO CONTINUE FOR 2 DAYS. 05/09/17 08:50 Blood - Peripheral Venous Blood Culture - Preliminary NO GROWTH OBTAINED AFTER 72 HOURS, INCUBATION TO CONTINUE FOR 2 DAYS. 05/09/17 18:00 Urine - Urine Clean Catch Urine Culture - Final NO GROWTH OBTAINED a/p s/p ercp Saturday wiith sphicterotomy for ampullary stenosis labs improved cholycystitis gallstone pancreatitis choledocholithiasis continue rocephin/flagyl cultures negative d/w Dr Alfred for cholycystectomy
[2017-05-12] MEDS ORDERED: cefTRIAXone SODIUM 1 GM VIAL ONE (10:49)
[2017-05-12] MEDS ORDERED: DEXTROSE 5%-WATER - 50 ML IVPB ONE (10:49)
[2017-05-12] MEDS: PANTOPRAZOLE 40 MG TABLET (FP) PO SCH (10:51)
[2017-05-12] MEDS: CEFTRIAXONE 1 GM in DEXTROSE 5%-WATER - 50 ML IVPB SCH (10:52)
[2017-05-13] MEDS: METRONIDAZOLE 500 MG PREMIXED 100 ML IVPB SCH ×3 (02:50→18:21)
[2017-05-13] MEDS: D5-1/2NS+30 MEQ KCL - 1,000 ML IV SCH ×3 (03:11→19:32)
--- NOTE | 2017-05-13 08:01 | PN ---
Progress Note, Physician History of Present Illness: IN BED EVENTS NOTED - Current Medication List Current Medications: Active Medications Potassium Chloride/Dextrose/Sod Cl (D5-1/2ns+30 Meq Kcl -) 1,000 mls @ 100 mls/ hr IV [facility] Last Admin: 05/13/17 03:11 Dose: Not Given Metronidazole (Flagyl 500mg Premixed Ivpb -) 100 mls @ 100 mls/hr IVPB Q8H-IV [facility] Last Admin: 05/13/17 02:50 Dose: 100 mls/hr Ceftriaxone Sodium 1 gm/ (Dextrose) 50 mls @ 100 mls/hr IVPB DAILY [facility] Last Admin: 05/12/17 10:52 Dose: 100 mls/hr Lorazepam (Ativan Injection -) 1 mg IVPUSH Q6H PRN PRN Reason: ANXIETY Morphine Sulfate (Morphine Injection -) 4 mg IVPUSH Q6H PRN PRN Reason: PAIN Pantoprazole Sodium (Protonix -) 40 mg PO DAILY [facility] Last Admin: 05/12/17 10:51 Dose: 40 mg - Objective Vital Signs: Vital Signs Temperature 97.7 F 05/13/17 06:00 Pulse Rate 147 H 05/13/17 06:00 Respiratory Rate 18 05/13/17 06:00 Blood Pressure 128/86 05/13/17 06:00 O2 Sat by Pulse Oximetry (%) 96 05/12/17 21:00 Cardiovascular: Yes: Regular Rate and Rhythm Respiratory: Yes: Regular, CTA Bilaterally Gastrointestinal: Yes: Normal Bowel Sounds, Soft Labs: CBC, BMP 05/12/17 06:20 05/12/17 06:20 INR, PTT INR 1.11 (0.82-1.09) 05/08/17 20:41 Problem List - Problems (1) Choledocholithiasis with acute cholecystitis Assessment/Plan: IV ABX ID/GI AND SURGICAL CONASULT--FOR CHOLICYSTECTOMY NPO IVF Code(s): K80.42 - CALCULUS OF BILE DUCT W ACUTE CHOLECYSTITIS W/O OBSTRUCTION (2) Gallstone pancreatitis Assessment/Plan: ABOVE ERCP Code(s): K85.10 - BILIARY ACUTE PANCREATITIS WITHOUT NECROSIS OR INFECTION (3) Pancreatitis Assessment/Plan: ABOVE Laboratory Tests 05/09/17 05/10/17 08:50 06:40 Total Amylase 437 H D 182 H D Lipase 2402 H 602 H Code(s): K85.90 - ACUTE PANCREATITIS WITHOUT NECROSIS OR INFECTION, UNSP Qualifiers: Chronicity: acute Pancreatitis type: other Acute pancreatitis complication: unspecified Qualified Code(s): K85.80 - Other acute pancreatitis without necrosis or infection; K85.8 - Other acute pancreatitis (4) Arrhythmia Assessment/Plan: TFT ECHO HOLTER --PVC CARDIO OCNSULT Code(s): I49.9 - CARDIAC ARRHYTHMIA, UNSPECIFIED
--- NOTE | 2017-05-13 08:08 | HOL ---
Hook-up date: 2017-05-09 14:40:00 Duration: 24:00:00 Test Indications: ARRHYTHMIA Medications: 394055 QRS complexes 4023 Ventricular ectopics which represent 3 % of total QRS comp. 21 Supraventricular ectopics which represent <1 % of total QRS comp. * Paced QRS complexs which represent % of total QRS comp. 8 % of Time Classified as Noise VENTRICULAR ECTOPY 4021 Isolated 0 Bigeminal Cycles 0 Couplets 0 Runs 0 Beats in Runs * Beats LONGEST at * BPM at :: -- * Beats FASTEST at * BPM at :: -- SUPRAVENTRICULAR ECTOPY 20 Isolated 0 Couplets 0 Runs 0 Beats in Runs * Beats LONGEST at * BPM at :: -- * Beats FASTEST at * BPM at :: -- HEART RATES 56 MIN at 14:08:37 2017-05-10 79 AVG 132 MAX at 15:03:10 2017-05-09 LONGEST RR 1.528 secs at 14:01:59 2017-05-10 SCANNED BY: GAUDENCIO 05/11/17 1. Basic rhythm was sinus, interrupted by sinus bradycardia and tachycardia. Average daily heart rate of 79 BPM. Rates varied between 56 and 132 BPM. 2. Occasional to frequent ventricular premature beats, single and unifocal. 3. Rare supraventricular premature beats. 4. ST-T waves did not reveal any significant change. No diary was submitted. Confirmed by SHEIKH BRANDYN, NILSA ([id number]), assistant editor MARIA INES LAWSON ([id number]) on 05/13/2017 8:08:11 AM Referred By: Laurel NUÑEZ Overread By: NILSA GRAY MD
--- NOTE | 2017-05-13 10:11 | PN ---
Progress Note (short form) - Note Progress Note: No new events reported Vital Signs Period Temp Pulse Resp BP Sys/Muhammad Pulse Ox Last 24 Hr 97.7 F-98.5 F 92-147 18-18 107-128/74-89 96 Abd soft, NT CBC,CMP WBC 7.4 K/mm3 (4.0-10.0) D 05/12/17 06:20 RBC 4.47 M/mm3 (4.00-5.60) 05/12/17 06:20 Hgb 13.4 GM/dL (11.7-16.9) D 05/12/17 06:20 Hct 38.9 % (35.4-49) 05/12/17 06:20 MCV 86.9 fl (80-96) 05/12/17 06:20 MCH 29.9 pg (25.7-33.7) 05/12/17 06:20 MCHC 34.4 g/dl (32.0-35.9) 05/12/17 06:20 RDW 12.5 % (11.9-15.9) 05/12/17 06:20 Plt Count 161 K/MM3 (134-434) D 05/12/17 06:20 MPV 10.0 fl (7.5-11.1) 05/12/17 06:20 Neutrophils % 81.2 % (42.8-82.8) 05/10/17 06:40 Lymphocytes % 11.4 % (8-40) D 05/10/17 06:40 Monocytes % 6.9 % (3.8-10.2) 05/10/17 06:40 Eosinophils % 0.2 % (0-4.5) D 05/10/17 06:40 Basophils % 0.3 % (0-2.0) 05/10/17 06:40 Sodium 139 mmol/L (136-145) 05/12/17 06:20 Potassium 3.4 mmol/L (3.5-5.1) L 05/12/17 06:20 Chloride 105 mmol/L (98-107) 05/12/17 06:20 Carbon Dioxide 28 mmol/L (21-32) 05/12/17 06:20 Anion Gap 6 (8-16) L 05/12/17 06:20 BUN 13 mg/dL (7-18) 05/12/17 06:20 Creatinine 0.9 mg/dL (0.7-1.3) 05/12/17 06:20 Creat Clearance w eGFR > 60 (>60) 05/12/17 06:20 Random Glucose 105 mg/dL (74-106) D 05/12/17 06:20 Hemoglobin A1c % 6.0 % (4.8-6.0) 05/09/17 08:50 Calcium 8.2 mg/dL (8.5-10.1) L 05/12/17 06:20 Magnesium 2.1 mg/dL (1.8-2.4) 05/12/17 06:20 Total Bilirubin 0.5 mg/dL (0.2-1.0) 05/12/17 06:20 AST 23 U/L (15-37) D 05/12/17 06:20 ALT 19 U/L (12-78) D 05/12/17 06:20 Alkaline Phosphatase 72 U/L (45-117) D 05/12/17 06:20 Creatine Kinase 94 IU/L (39-308) 05/08/17 20:41 Troponin I < 0.02 ng/ml (0.00-0.05) 05/08/17 20:41 Total Protein 6.3 g/dl (6.4-8.2) L 05/12/17 06:20 Albumin 3.1 g/dl (3.4-5.0) L 05/12/17 06:20 Triglycerides 49 mg/dL (35-160) 05/09/17 08:50 Cholesterol 99 mg/dL (50-200) 05/09/17 08:50 Total LDL Cholesterol 57 mg/dL (5-100) 05/09/17 08:50 HDL Cholesterol 31 mg/dL (40-60) L 05/09/17 08:50 Total Amylase 182 U/L (25-115) H D 05/10/17 06:40 Lipase 602 U/L (73-393) H 05/10/17 06:40 TSH 1.30 uIU/ml (0.358-3.74) 05/09/17 08:50 Free T4 1.51 ng/dl (0.76-1.16) H 05/09/17 08:50 Awaiting pathology Problem List - Problems (1) Gallstone pancreatitis Code(s): K85.10 - BILIARY ACUTE PANCREATITIS WITHOUT NECROSIS OR INFECTION (2) Choledocholithiasis with acute cholecystitis Code(s): K80.42 - CALCULUS OF BILE DUCT W ACUTE CHOLECYSTITIS W/O OBSTRUCTION
--- NOTE | 2017-05-13 10:34 | PN ---
Progress Note (short form) - Note Progress Note: awake and alert nad Vital Signs Period Temp Pulse Resp BP Sys/Muhammad Pulse Ox Last 24 Hr 97.7 F-98.5 F 92-147 18-18 107-128/74-89 96 cor-rrr lungs clear abd soft,nt ext no edema CBC, BMP 05/12/17 06:20 05/12/17 06:20 Microbiology 05/09/17 09:31 Blood - Peripheral Venous Blood Culture - Preliminary NO GROWTH OBTAINED AFTER 96 HOURS, INCUBATION TO CONTINUE FOR 1 DAYS. 05/09/17 08:50 Blood - Peripheral Venous Blood Culture - Preliminary NO GROWTH OBTAINED AFTER 96 HOURS, INCUBATION TO CONTINUE FOR 1 DAYS. 05/09/17 18:00 Urine - Urine Clean Catch Urine Culture - Final NO GROWTH OBTAINED a/p s/p ercp Saturday wiith sphicterotomy for ampullary stenosis labs improved cholycystitis gallstone pancreatitis choledocholithiasis continue rocephin/flagyl cultures negative for cholycystectomy awaiting pathology
[2017-05-13] MEDS ORDERED: cefTRIAXone SODIUM 1 GM VIAL ONE (10:36)
[2017-05-13] MEDS ORDERED: DEXTROSE 5%-WATER - 50 ML IVPB ONE (10:36)
[2017-05-13] MEDS: CEFTRIAXONE 1 GM in DEXTROSE 5%-WATER - 50 ML IVPB SCH (10:40)
[2017-05-13] MEDS: PANTOPRAZOLE 40 MG TABLET (FP) PO SCH (10:41)
--- NOTE | 2017-05-13 14:50 | CON.CARD ---
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 He presented to the ED with vomiting on 05/08/17. He appears comfortable and is in no distress. Catscan revealed a 2.5 cm CBD stone. S/P ERCP with sphicterotomy and a cholycytectomy is planned. An echocardiogram was performed on 12/10/16 which showed normal LV size and function, Normal RV size and function, Trace TR and mild aortic root dilatation. The EF is 76%. An EKG dated 05/08/17 Show sinus bradycardia at 57 BPM with LVH and sinus arrhythmia. A Holter fir 24 hours shwed predominately NSR with periods of sinus bradycardia and sinus tachycardia. The HR varied from 56 BPM to 132 BPM. Occasional PVC's were noted. Rare supraventricular beats were noted. - Past Medical History Cardio/Vascular: No: CHF, HTN Pulmonary: No: Asthma, COPD Additional Medical History: Mental retardation - Alcohol/Substance Use Hx Alcohol Use: No - Smoking History Smoking history: Never smoked Home Medications - Allergies Allergies/Adverse Reactions: Allergies Allergy/AdvReac Type Severity Reaction Status Date / Time No Known Allergies Allergy Verified 05/08/17 21:06 - Home Medications Home Medications: Ambulatory Orders NK [No Known Home Medication] 05/08/17 Review of Systems Unable to obtain ROS, reason: As per HPI Vital Signs: Vital Signs Temperature 99.0 F 05/13/17 14:24 Pulse Rate 79 05/13/17 14:24 Respiratory Rate 16 05/13/17 14:24 Blood Pressure 124/81 05/13/17 14:24 O2 Sat by Pulse Oximetry (%) 96 05/12/17 21:00 Constitutional: Yes: No Distress Neck: Yes: WNL Respiratory: Yes: CTA Bilaterally Gastrointestinal: Yes: Soft Cardiovascular: Yes: Regular Rate and Rhythm Heart Sounds: Yes: S1, S2 Murmur: Yes: Systolic Murmur (No MRHG) Extremities: Yes: WNL Edema: No Peripheral Pulses WNL: Yes Neurological: Yes: Other (Non verbal Grossly non focal) - Other Data Labs, Other Data: CBC, BMP 05/12/17 06:20 07/30/17 06:20 INR, PTT INR 1.11 (0.82-1.09) 05/08/17 20:41 Assessment/Plan [facility] *LIVE* 66 year old male with HTN, non verbal A cholycytectomy is planned. Echocardiogram was performed on 12/10/16 which showed normal LV size and function , Normal RV size and function, Trace TR and mild aortic root dilatation. The EF is 76%. An EKG dated 05/08/17 Show sinus bradycardia at 57 BPM with LVH and sinus arrhythmia. A Holter fir 24 hours shwed predominately NSR with periods of sinus bradycardia and sinus tachycardia. The HR varied from 56 BPM to 132 BPM. Occasional PVC's were noted. Rare supraventricular beats were noted. Based on the above testing and my clinical evaluation, there are no cardiac contraindications to surgery. Would replete K+ adequately for surgery No further PreOp cardiac testing required No role for preOp beta blockers in this case
--- NOTE | 2017-05-13 14:50 | CONSULT ---
Admitting History and Physical - Admission Chief Complaint: arrythmia, gallstones, pancreatitis, dilated bile duct History Source: Medical Record, Caregiver Limitations to Obtaining History: Other (language barrier) - Past Medical History Cardiovascular: No: CHF, HTN Pulmonary: No: Asthma, COPD Gastrointestinal: Yes: Pancreatitis Hepatobiliary: Yes: Choledocholithiasis, Other (gallstones) - Smoking History Smoking history: Never smoked - Alcohol/Substance Use Hx Alcohol Use: No History - Admission Reason For Visit: PANCREATITIS - Diagnostics X-ray: Report Reviewed CT Scan: Report Reviewed - General Mental Status: Awake and Alert Attention: Distractible Ability to Follow Directions: Fair Head/Neck Control: WFL - Hearing Hearing: Normal Speech Evaluation - Communication Primary Language: LUXEMBOURGER - Swallow Evaluation/Bedside Assessment Current Nutritional Intake: Regular Oral Secretions: Yes: WFL Tracheostomy Present: No Patient on Ventilator: No Dentition: Yes: Missing Teeth Facial Symmetry at Rest: Symmetrical Facial Symmetry on Retraction: Symmetrical Sensation: Normal Jaw Position: Closed at Rest Pucker Lips: Normal Smile: Normal Lingual Movement: Normal Lingual Speed of Movement: Normal Soft Palate Description: Normal Color Hard Palate Description: Normal Color Laryngeal Movement: Able to Palpate Needs Assistance: Yes Rate of Intake: Impulsive Bolus Size: WFL Labial Seal: WFL Chewing: WFL Oral Prep Time: WFL A-P Transit: WFL Pocketing: None Timing of Swallow: WFL Coughing/Throat Clear: No Change in Voice: No Other Findings/Remarks: This 66 year old male is able to tolerate thin liquids, honey thickened liquids and chewable solids without any signs of aspiration. Recommendations - Dysphagia Impressions/Plan Swallowing Skills: WFL - Recommendations Diet Consistency: Regular Medication Administration: Whole with water (No signs of aspiration observed for thin liquids, honey thickened liquids or chewable solids at bedside.) Liquids: Thin Liquids
[2017-05-14] MEDS: METRONIDAZOLE 500 MG PREMIXED 100 ML IVPB SCH ×3 (02:40→17:44)
[2017-05-14] MEDS: D5-1/2NS+30 MEQ KCL - 1,000 ML IV SCH ×3 (06:26→17:41)
[2017-05-14 08:08] LABS: BASOPHIL 0.7 % (0-2.0); MCH 29.9 pg (25.7-33.7); MCHC 34.1 g/dl (32.0-35.9); MEAN CELL VOLUME 87.7 fl (80-96); MEAN PLT VOLUME 9.6 fl (7.5-11.1); NEUTROPHILS 69.4 % (42.8-82.8); PLATELET COUNT 186 K/MM3 (134-434); RDW 12.8 % (11.9-15.9); WHITE BLOOD COUNT 8.9 K/mm3 (4.0-10.0)
[2017-05-14 08:52] LABS: ALBUMIN 3.5 g/dl (3.4-5.0); ALK PHOS 71 U/L (45-117); ANION GAP 9 (8-16); BILIRUBIN,TOTAL 0.5 mg/dL (0.2-1.0); CALCIUM 8.6 mg/dL (8.5-10.1); CO2 27 mmol/L (21-32); GLUCOSE,RANDOM 112 mg/dL (74-106); SGOT/AST 43 U/L (15-37); SGPT/ALT 31 U/L (12-78); TOT PROT 6.9 g/dl (6.4-8.2)
--- NOTE | 2017-05-14 10:24 | PN ---
Progress Note, Physician Chief Complaint: Abdominal pain History of Present Illness: Originally came in with cholelithiasis with acute pancreatitis without necrosis. Status post ERCP with Sphinterotomy. In bed, NAD. Awaiting Pathology report. On IV abx. - Current Medication List Current Medications: Active Medications Metronidazole (Flagyl 500mg Premixed Ivpb -) 100 mls @ 100 mls/hr IVPB Q8H-IV [facility] Last Admin: 05/14/17 02:40 Dose: 100 mls/hr Ceftriaxone Sodium 1 gm/ (Dextrose) 50 mls @ 100 mls/hr IVPB DAILY [facility] Last Admin: 05/13/17 10:40 Dose: 100 mls/hr Potassium Chloride/Dextrose/Sod Cl (D5-1/2ns+30 Meq Kcl -) 1,000 mls @ 83 mls/ hr IV [facility] Lorazepam (Ativan Injection -) 1 mg IVPUSH Q6H PRN PRN Reason: ANXIETY Morphine Sulfate (Morphine Injection -) 4 mg IVPUSH Q6H PRN PRN Reason: PAIN Pantoprazole Sodium (Protonix -) 40 mg PO DAILY [facility] Last Admin: 05/13/17 10:41 Dose: 40 mg - Objective Vital Signs: Vital Signs Temperature 98.1 F 05/14/17 06:12 Pulse Rate 80 05/14/17 06:12 Respiratory Rate 20 05/14/17 06:12 Blood Pressure 132/75 05/14/17 06:12 O2 Sat by Pulse Oximetry (%) 96 05/12/17 21:00 Constitutional: Yes: Well Nourished, No Distress, Calm Cardiovascular: Yes: Regular Rate and Rhythm Respiratory: Yes: WNL Gastrointestinal: Yes: Normal Bowel Sounds Musculoskeletal: Yes: WNL Extremities: Yes: WNL Edema: No Peripheral Pulses WNL: Yes Neurological: Yes: Alert, Unsteady Gait, Other (language barrier) Psychiatric: Yes: Alert Labs: CBC, BMP 05/14/17 07:40 05/14/17 07:40 INR, PTT INR 1.11 (0.82-1.09) 05/08/17 20:41 Problem List - Problems (1) Choledocholithiasis with acute cholecystitis Code(s): K80.42 - CALCULUS OF BILE DUCT W ACUTE CHOLECYSTITIS W/O OBSTRUCTION (2) Gallstone pancreatitis Assessment/Plan: -labs improved -IV abx -await pathology report -seen by GI Code(s): K85.10 - BILIARY ACUTE PANCREATITIS WITHOUT NECROSIS OR INFECTION (3) Hypokalemia Assessment/Plan: normalized today, continue to monitor Code(s): E87.6 - HYPOKALEMIA Assessment/Plan -IV abx -await pathology -cholecyctectomy? -GI consult -monitor labs and lytes
--- NOTE | 2017-05-14 11:48 | PN ---
Progress Note, VETERINARIAN ASSISTANT - Note Progress Note: Selected Entries 05/13/17 05/13/17 05/13/17 06:00 10:00 12:04 Breakfast 100% Lunch Supper Temperature 97.7 F 98.7 F 05/13/17 05/13/17 05/13/17 14:24 17:26 19:44 Breakfast Lunch 75% Supper 100% Temperature 99.0 F 98.0 F 05/13/17 05/14/17 05/14/17 22:00 06:12 10:36 Breakfast 75% Lunch Supper Temperature 98.1 F 98.1 F Laboratory Tests 05/14/17 07:40 WBC 8.9 Impulsive self feeding, with risk of aspiration. OOB for meals. Supervision, as indicated.
[2017-05-14] MEDS ORDERED: DEXTROSE 5%-WATER - 50 ML IVPB ONE (12:19)
[2017-05-14] MEDS ORDERED: cefTRIAXone SODIUM 1 GM VIAL ONE (12:19)
[2017-05-14] MEDS: PANTOPRAZOLE 40 MG TABLET (FP) PO SCH (12:23)
[2017-05-14] MEDS: CEFTRIAXONE 1 GM in DEXTROSE 5%-WATER - 50 ML IVPB SCH (12:24)
--- NOTE | 2017-05-14 15:06 | PN ---
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 He presented to the ED with vomiting on 05/08/17. He appears comfortable and is in no distress. Catscan revealed a 2.5 cm CBD stone. S/P ERCP with sphicterotomy and a cholycytectomy is planned. An echocardiogram was performed on 12/10/16 which showed normal LV size and function, Normal RV size and function, Trace TR and mild aortic root dilatation. The EF is 76%. An EKG dated 05/08/17 Show sinus bradycardia at 57 BPM with LVH and sinus arrhythmia. A Holter fir 24 hours shwed predominately NSR with periods of sinus bradycardia and sinus tachycardia. The HR varied from 56 BPM to 132 BPM. Occasional PVC's were noted. Rare supraventricular beats were noted. - Current Medication List Current Medications: Active Medications Metronidazole (Flagyl 500mg Premixed Ivpb -) 100 mls @ 100 mls/hr IVPB Q8H-IV [facility] Last Admin: 05/14/17 12:23 Dose: 100 mls/hr Ceftriaxone Sodium 1 gm/ (Dextrose) 50 mls @ 100 mls/hr IVPB DAILY [facility] Last Admin: 05/14/17 12:24 Dose: 100 mls/hr Potassium Chloride/Dextrose/Sod Cl (D5-1/2ns+30 Meq Kcl -) 1,000 mls @ 83 mls/ hr IV ASDIR [facility] Last Admin: 05/14/17 12:23 Dose: 83 mls/hr Lorazepam (Ativan Injection -) 1 mg IVPUSH Q6H PRN PRN Reason: ANXIETY Morphine Sulfate (Morphine Injection -) 4 mg IVPUSH Q6H PRN PRN Reason: PAIN Pantoprazole Sodium (Protonix -) 40 mg PO DAILY [facility] Last Admin: 05/14/17 12:23 Dose: 40 mg - Objective Vital Signs: Vital Signs Temperature 98.6 F 05/14/17 14:47 Pulse Rate 84 05/14/17 14:47 Respiratory Rate 18 05/14/17 14:47 Blood Pressure 120/74 05/14/17 14:47 O2 Sat by Pulse Oximetry (%) 96 05/12/17 21:00 Constitutional: Yes: No Distress Neck: Yes: WNL Cardiovascular: Yes: Regular Rate and Rhythm Respiratory: Yes: WNL, Regular Gastrointestinal: Yes: Normal Bowel Sounds Extremities: Yes: WNL Edema: No Neurological: Yes: Alert, Oriented (Grossly non focal) Psychiatric: Yes: WNL Labs: CBC, BMP 05/14/17 07:40 05/14/17 07:40 INR, PTT INR 1.11 (0.82-1.09) 05/08/17 20:41 Assessment/Plan [facility] *LIVE* 66 year old male with HTN, non verbal A cholycytectomy is planned. Echocardiogram was performed on 12/10/16 which showed normal LV size and function , Normal RV size and function, Trace TR and mild aortic root dilatation. The EF is 76%. An EKG dated 05/08/17 Show sinus bradycardia at 57 BPM with LVH and sinus arrhythmia. A Holter fir 24 hours shwed predominately NSR with periods of sinus bradycardia and sinus tachycardia. The HR varied from 56 BPM to 132 BPM. Occasional PVC's were noted. Rare supraventricular beats were noted. Based on the above testing and my clinical evaluation, there are no cardiac contraindications to surgery. K+ adequately replete No further PreOp cardiac testing required No role for preOp beta blockers in this case
--- NOTE | 2017-05-14 15:31 | PN ---
Progress Note (short form) - Note Progress Note: No new events Vital Signs Period Temp Pulse Resp BP Sys/Muhammad Pulse Ox Last 24 Hr 98.0 F-98.6 F 80-110 18-20 120-132/74-83 Abd soft, NT CBC,CMP WBC 8.9 K/mm3 (4.0-10.0) 05/14/17 07:40 RBC 4.78 M/mm3 (4.00-5.60) 05/14/17 07:40 Hgb 14.3 GM/dL (11.7-16.9) 05/14/17 07:40 Hct 41.9 % (35.4-49) 05/14/17 07:40 MCV 87.7 fl (80-96) 05/14/17 07:40 MCH 29.9 pg (25.7-33.7) 05/14/17 07:40 MCHC 34.1 g/dl (32.0-35.9) 05/14/17 07:40 RDW 12.8 % (11.9-15.9) 05/14/17 07:40 Plt Count 186 K/MM3 (134-434) 05/14/17 07:40 MPV 9.6 fl (7.5-11.1) 05/14/17 07:40 Neutrophils % 69.4 % (42.8-82.8) 05/14/17 07:40 Lymphocytes % 17.0 % (8-40) D 05/14/17 07:40 Monocytes % 8.9 % (3.8-10.2) 05/14/17 07:40 Eosinophils % 4.0 % (0-4.5) D 05/14/17 07:40 Basophils % 0.7 % (0-2.0) 05/14/17 07:40 Sodium 136 mmol/L (136-145) 05/14/17 07:40 Potassium 3.8 mmol/L (3.5-5.1) 05/14/17 07:40 Chloride 100 mmol/L (98-107) 05/14/17 07:40 Carbon Dioxide 27 mmol/L (21-32) 05/14/17 07:40 Anion Gap 9 (8-16) 05/14/17 07:40 BUN 16 mg/dL (7-18) D 05/14/17 07:40 Creatinine 1.0 mg/dL (0.7-1.3) 05/14/17 07:40 Creat Clearance w eGFR > 60 (>60) 05/14/17 07:40 Random Glucose 112 mg/dL (74-106) H 05/14/17 07:40 Hemoglobin A1c % 6.0 % (4.8-6.0) 05/09/17 08:50 Calcium 8.6 mg/dL (8.5-10.1) 05/14/17 07:40 Magnesium 2.1 mg/dL (1.8-2.4) 05/12/17 06:20 Total Bilirubin 0.5 mg/dL (0.2-1.0) 05/14/17 07:40 AST 43 U/L (15-37) H D 05/14/17 07:40 ALT 31 U/L (12-78) D 05/14/17 07:40 Alkaline Phosphatase 71 U/L (45-117) 05/14/17 07:40 Creatine Kinase 94 IU/L (39-308) 05/08/17 20:41 Troponin I < 0.02 ng/ml (0.00-0.05) 05/08/17 20:41 Total Protein 6.9 g/dl (6.4-8.2) 05/14/17 07:40 Albumin 3.5 g/dl (3.4-5.0) 05/14/17 07:40 Triglycerides 49 mg/dL (35-160) 05/09/17 08:50 Cholesterol 99 mg/dL (50-200) 05/09/17 08:50 Total LDL Cholesterol 57 mg/dL (5-100) 05/09/17 08:50 HDL Cholesterol 31 mg/dL (40-60) L 05/09/17 08:50 Total Amylase 182 U/L (25-115) H D 05/10/17 06:40 Lipase 602 U/L (73-393) H 05/10/17 06:40 TSH 1.30 uIU/ml (0.358-3.74) 05/09/17 08:50 Free T4 1.51 ng/dl (0.76-1.16) H 05/09/17 08:50 Await brush biopsy reports If no malignancy, will plan cholecystectomy Problem List - Problems (1) Gallstone pancreatitis Code(s): K85.10 - BILIARY ACUTE PANCREATITIS WITHOUT NECROSIS OR INFECTION (2) Choledocholithiasis with acute cholecystitis Code(s): K80.42 - CALCULUS OF BILE DUCT W ACUTE CHOLECYSTITIS W/O OBSTRUCTION
--- NOTE | 2017-05-14 16:03 | PATH ---
Cytology Non-Gynecological Report Patient Name: LB WILLARD Med. Rec. #: [id number] /Age/Gender: 1950 (Age: 66) / M Account: [id number] Location: [facility] MED/SURG Taken: 05/10/2017 Received: 05/13/2017 Reported: 05/14/2017 Physicians: Karen Baca M.D. Jonathan Arad, M.D. Specimen(s) Received COMMON BILE DUCT BRUSH Clinical History R/o adenocarcinoma of CBD Final Diagnosis COMMON BILE DUCT, BRUSHING: SATISFACTORY FOR EVALUATION. SCATTERED CLUSTERS OF MILDLY ATYPICAL EPITHLIAL CELLS PRESENT, FAVOR REACTIVE. BACKGROUND REACTIVE BILIARY EPITHELIUM. Electronically Signed Jace Lugo M.D. Gross Description Received is one slide in 95% alcohol and 0.1 cc of clear fluid. Two Pap stained smear slides and two cytofunnel slides are made.
[2017-05-15] MEDS: METRONIDAZOLE 500 MG PREMIXED 100 ML IVPB SCH (02:45)
[2017-05-15 08:35] LABS: BASOPHIL 0.6 % (0-2.0); EOSINOPHIL 3.4 % (0-4.5); MCHC 34.4 g/dl (32.0-35.9); MEAN CELL VOLUME 87.2 fl (80-96); NEUTROPHILS 71.2 % (42.8-82.8); PLATELET COUNT 182 K/MM3 (134-434); RDW 12.9 % (11.9-15.9); WHITE BLOOD COUNT 8.1 K/mm3 (4.0-10.0)
--- NOTE | 2017-05-15 08:54 | PN ---
Progress Note, Physician Chief Complaint: Remains on antibiotics Ceftriaxone and metronidazole Never febrile - Current Medication List Current Medications: Active Medications Metronidazole (Flagyl 500mg Premixed Ivpb -) 100 mls @ 100 mls/hr IVPB Q8H-IV [facility] Last Admin: 05/15/17 02:45 Dose: 100 mls/hr Ceftriaxone Sodium 1 gm/ (Dextrose) 50 mls @ 100 mls/hr IVPB DAILY [facility] Last Admin: 05/14/17 12:24 Dose: 100 mls/hr Potassium Chloride/Dextrose/Sod Cl (D5-1/2ns+30 Meq Kcl -) 1,000 mls @ 83 mls/ hr IV ASDIR [facility] Last Admin: 05/14/17 17:41 Dose: 83 mls/hr Lorazepam (Ativan Injection -) 1 mg IVPUSH Q6H PRN PRN Reason: ANXIETY Morphine Sulfate (Morphine Injection -) 4 mg IVPUSH Q6H PRN PRN Reason: PAIN Pantoprazole Sodium (Protonix -) 40 mg PO DAILY [facility] Last Admin: 05/14/17 12:23 Dose: 40 mg - Objective Vital Signs: Vital Signs Temperature 98.2 F 05/15/17 06:00 Pulse Rate 77 05/15/17 06:00 Respiratory Rate 20 05/15/17 06:00 Blood Pressure 118/77 05/15/17 06:00 O2 Sat by Pulse Oximetry (%) 96 05/12/17 21:00 Labs: CBC, BMP 05/15/17 06:30 INR, PTT INR 1.11 (0.82-1.09) 05/08/17 20:41 Assessment/Plan Microbiology 05/09/17 18:00 Urine - Urine Clean Catch Urine Culture - Final NO GROWTH OBTAINED 05/09/17 09:31 Blood - Peripheral Venous Blood Culture - Final NO GROWTH AFTER 5 DAYS INCUBATION 05/09/17 08:50 Blood - Peripheral Venous Blood Culture - Final NO GROWTH AFTER 5 DAYS INCUBATION Laboratory Tests 05/14/17 05/15/17 07:40 06:30 WBC 8.1 Hgb 14.4 Hct 41.9 Plt Count 182 BUN 16 D Creatinine 1.0 Total Bilirubin 0.5 AST 43 H D ALT 31 D Alkaline Phosphatase 71 Assessment Biliary pancreatitis/mild cholecysititis Hilar adenopathy ?? Plan Stop IV antibiotics Augmentin for few more days Quant gold screening probably positive Will review CT chest Azucena AHUMADA
[2017-05-15 09:11] LABS: ALBUMIN 3.3 g/dl (3.4-5.0); ANION GAP 7 (8-16); CALCIUM 8.9 mg/dL (8.5-10.1); CO2 25 mmol/L (21-32); CREATININE 0.9 mg/dL (0.7-1.3); GLUCOSE,RANDOM 100 mg/dL (74-106); SGOT/AST 30 U/L (15-37); SGPT/ALT 30 U/L (12-78)
[2017-05-15 09:12] LABS: ALK PHOS 66 U/L (45-117); BILIRUBIN,TOTAL 0.3 mg/dL (0.2-1.0); TOT PROT 6.6 g/dl (6.4-8.2)
--- NOTE | 2017-05-15 09:25 | PN ---
Progress Note, Physician History of Present Illness: IN BED EVENTS NOTED - Current Medication List Current Medications: Active Medications Amoxicillin/Clavulanate Potassium (Augmentin - 875mg Tablet) 1 tab PO BID@0800, 1730 [facility] Potassium Chloride/Dextrose/Sod Cl (D5-1/2ns+30 Meq Kcl -) 1,000 mls @ 83 mls/ hr IV ASDIR [facility] Last Admin: 05/14/17 17:41 Dose: 83 mls/hr Lorazepam (Ativan Injection -) 1 mg IVPUSH Q6H PRN PRN Reason: ANXIETY Morphine Sulfate (Morphine Injection -) 4 mg IVPUSH Q6H PRN PRN Reason: PAIN Pantoprazole Sodium (Protonix -) 40 mg PO DAILY [facility] Last Admin: 05/14/17 12:23 Dose: 40 mg - Objective Vital Signs: Vital Signs Temperature 98.2 F 05/15/17 06:00 Pulse Rate 77 05/15/17 06:00 Respiratory Rate 20 05/15/17 06:00 Blood Pressure 118/77 05/15/17 06:00 O2 Sat by Pulse Oximetry (%) 96 05/12/17 21:00 Cardiovascular: Yes: Regular Rate and Rhythm Respiratory: Yes: Regular, CTA Bilaterally Gastrointestinal: Yes: Normal Bowel Sounds, Soft Labs: CBC, BMP 05/15/17 06:30 05/15/17 06:30 INR, PTT INR 1.11 (0.82-1.09) 05/08/17 20:41 Problem List - Problems (1) Choledocholithiasis with acute cholecystitis Code(s): K80.42 - CALCULUS OF BILE DUCT W ACUTE CHOLECYSTITIS W/O OBSTRUCTION (2) Gallstone pancreatitis Code(s): K85.10 - BILIARY ACUTE PANCREATITIS WITHOUT NECROSIS OR INFECTION (3) Pancreatitis Code(s): K85.90 - ACUTE PANCREATITIS WITHOUT NECROSIS OR INFECTION, UNSP Qualifiers: Chronicity: acute Pancreatitis type: other Acute pancreatitis complication: unspecified Qualified Code(s): K85.80 - Other acute pancreatitis without necrosis or infection; K85.8 - Other acute pancreatitis (4) Arrhythmia Code(s): I49.9 - CARDIAC ARRHYTHMIA, UNSPECIFIED Assessment/Plan - Problems (1) Choledocholithiasis with acute cholecystitis Code(s): K80.42 - CALCULUS OF BILE DUCT W ACUTE CHOLECYSTITIS W/O OBSTRUCTION (2) Gallstone pancreatitis Assessment/Plan: -labs improved -IV abx -await pathology report -seen by GI Code(s): K85.10 - BILIARY ACUTE PANCREATITIS WITHOUT NECROSIS OR INFECTION (3) Hypokalemia Assessment/Plan: normalized today, continue to monitor Code(s): E87.6 - HYPOKALEMIA Assessment/Plan -IV abx -await pathology -cholecyctectomy? -GI consult -monitor labs and lytes
[2017-05-15] MEDS: D5-1/2NS+30 MEQ KCL - 1,000 ML IV SCH (10:01)
[2017-05-15] MEDS: PANTOPRAZOLE 40 MG TABLET (FP) PO SCH (10:01)
--- NOTE | 2017-05-15 11:35 | PN ---
Progress Note (short form) - Note Progress Note: cytology brushings report available--no evidence of malignancy for cholecystectomy Problem List - Problems (1) Dilated bile duct Code(s): K83.8 - OTHER SPECIFIED DISEASES OF BILIARY TRACT
[2017-05-15] MEDS ORDERED: AMOX TR/POT CLAV 875MG/125MG TABLETS (FP) PO SCH (17:30)
[2017-05-15] MEDS ORDERED: PROPOFOL 20 ML ONE (17:38)
[2017-05-15] MEDS ORDERED: ROCURONIUM BROMIDE 50 MG/5 ML VIAL ONE (17:38)
[2017-05-15] MEDS ORDERED: LIDOCAINE HCL/PF 2% SDV 5ML VIAL ONE (17:38)
[2017-05-15] MEDS ORDERED: ceFAZolin SODIUM 1 GM VIAL IVPB ONE (17:45)
[2017-05-15] MEDS ORDERED: ceFAZolin SODIUM 1 GM VIAL ONE (17:45)
[2017-05-15] MEDS ORDERED: BUPIVACAINE HCL/PF 0.5% (5MG/ML) 10 ML VIAL ONE (18:14)
[2017-05-15] MEDS ORDERED: DEXAMETHASONE SOD PHOSPHATE 4 MG/1 ML VIAL ONE (18:17)
[2017-05-15] MEDS ORDERED: NEOSTIGMINE METHYLSULFATE 0.5 MG/ML - 10 ML MDV ONE (18:18)
[2017-05-15] MEDS ORDERED: GLYCOPYRROLATE 0.2 MG/1 ML VIAL ONE (18:20)
--- NOTE | 2017-05-15 18:40 | OP ---
Operative Note - Note: Operative Date: 05/15/17 Pre-Operative Diagnosis: Gallstone pancreatitis Operation: Laparoscopic cholecystectomy Post-Operative Diagnosis: Same as Pre-op Surgeon: Naveen Pereira Finish Off Operator: Ray Puri Anesthesia: General Specimens Removed: Gallbladder Estimated Blood Loss (mls): 20 Operative Report Dictated: Yes
[2017-05-15] MEDS ORDERED: HYDROmorphone HCL CARPU-JECT 1 MG/1 ML DISP.SYRIN IVPB PRN ×2 (18:46→19:08)
[2017-05-15] MEDS ORDERED: ACETAMINOPHEN 325 MG TABLET (FP) PO PRN ×2 (18:46→19:08)
[2017-05-15] MEDS ORDERED: ONDANSETRON 4 MG/2 ML VIAL IVPB PRN ×2 (18:46→19:08)
[2017-05-15] MEDS ORDERED: HYDROmorphone HCL CARPU-JECT 2 MG/1 ML DISP.SYRIN ONE (18:47)
[2017-05-15] MEDS: HYDROmorphone HCL CARPU-JECT 1 MG/1 ML DISP.SYRIN IVPUSH PRN ×2 (18:55→19:20)
[2017-05-15] MEDS ORDERED: D5-1/2NS+30 MEQ KCL - 1,000 ML IV SCH (19:08)
[2017-05-15] MEDS ORDERED: ONDANSETRON 4 MG/2 ML VIAL IVPUSH ONE (19:19)
--- NOTE | 2017-05-16 07:20 | SURG ---
Surgery [employer] Supervisor Note [employer] Supervisor: Ray Puri PA-C Date of Service: 05/15/17 Diagnosis: Gallstone pancreatitis Procedure: Laparoscopic cholecystectomy I was present for the entirety of the operative procedure. For further detail, please refer to operative report. Visit type - Case Type Case Type: ED Admission - New patient This patient is new to me today: Yes Date on this admission: 05/16/17
--- NOTE | 2017-05-16 07:52 | PN ---
Progress Note, Physician Chief Complaint: ID Day 1 post op cholecystectomy Appears stable afebrile - Current Medication List Current Medications: Active Medications Acetaminophen (Tylenol -) 650 mg PO Q6H PRN PRN Reason: FEVER OR PAIN Amoxicillin/Clavulanate Potassium (Augmentin - 875mg Tablet) 1 tab PO BID@0800, 1730 [facility] Hydromorphone HCl (Dilaudid Injection -) 1 mg IVPB Q4H PRN PRN Reason: PAIN Potassium Chloride/Dextrose/Sod Cl (D5-1/2ns+30 Meq Kcl -) 1,000 mls @ 83 mls/ hr IV ASDIR [facility] Ondansetron HCl (Zofran Injection) 4 mg IVPB Q4H PRN PRN Reason: NAUSEA AND/OR VOMITING Pantoprazole Sodium (Protonix -) 40 mg PO DAILY [facility] - Objective Vital Signs: Vital Signs Temperature 98.3 F 05/16/17 06:00 Pulse Rate 83 05/16/17 06:00 Respiratory Rate 20 05/16/17 06:00 Blood Pressure 124/83 05/16/17 06:00 O2 Sat by Pulse Oximetry (%) 97 05/15/17 21:00 Constitutional: Yes: Well Nourished, No Distress HENT: Yes: WNL, Atraumatic Neck: Yes: WNL, Supple Cardiovascular: Yes: S1, S2 Respiratory: Yes: WNL, Regular, CTA Bilaterally Gastrointestinal: Yes: WNL, Normal Bowel Sounds, Soft. No: Tenderness Edema: No Labs: CBC, BMP 05/15/17 06:30 05/15/17 06:30 INR, PTT INR 1.11 (0.82-1.09) 05/08/17 20:41 Assessment/Plan Microbiology 05/09/17 18:00 Urine - Urine Clean Catch Urine Culture - Final NO GROWTH OBTAINED 05/09/17 09:31 Blood - Peripheral Venous Blood Culture - Final NO GROWTH AFTER 5 DAYS INCUBATION 05/09/17 08:50 Blood - Peripheral Venous Blood Culture - Final NO GROWTH AFTER 5 DAYS INCUBATION Laboratory Tests 05/15/17 05/15/17 06:30 06:30 WBC 8.1 Hgb 14.4 Plt Count 182 BUN 15 Creatinine 0.9 Assessment S/P Lap sandhya stable post op Hilar nodes ?calcified representing healed TB Plan Augmentin can stop by tomorrow Quant gold pending This evaluation can be pursued as outpt Clinically do not suspect active TB Azucena AHUMADA
[2017-05-16 08:02] LABS: BASOPHIL 0.2 % (0-2.0); EOSINOPHIL 0.1 % (0-4.5); MCHC 34.1 g/dl (32.0-35.9); MEAN CELL VOLUME 88.1 fl (80-96); MEAN PLT VOLUME 9.6 fl (7.5-11.1); NEUTROPHILS 83.8 % (42.8-82.8); PLATELET COUNT 195 K/MM3 (134-434); RDW 12.7 % (11.9-15.9); WHITE BLOOD COUNT 10.8 K/mm3 (4.0-10.0)
[2017-05-16 08:52] LABS: ALBUMIN 3.2 g/dl (3.4-5.0); ALK PHOS 64 U/L (45-117); ANION GAP 9 (8-16); BILIRUBIN,TOTAL 0.5 mg/dL (0.2-1.0); CALCIUM 8.6 mg/dL (8.5-10.1); CO2 26 mmol/L (21-32); CREATININE 0.9 mg/dL (0.7-1.3); GLUCOSE,RANDOM 129 mg/dL (74-106); SGOT/AST 32 U/L (15-37); SGPT/ALT 31 U/L (12-78); TOT PROT 6.2 g/dl (6.4-8.2)
--- NOTE | 2017-05-16 08:55 | SPEC ---
DATE OF OPERATION: 05/15/2017 SURGEON: Natalia Pereira MD HEAD GOLF COACH: RADHA Victoria PREOPERATIVE DIAGNOSIS: Gallstone pancreatitis. POSTOPERATIVE DIAGNOSIS: Gallstone pancreatitis. PROCEDURE: Laparoscopic cholecystectomy. SPECIMEN: Gallbladder. ESTIMATED BLOOD LOSS: 20 mL. DRAINS: None. ANESTHESIA: GET. REASON FOR PROCEDURE: This is a 66-year-old gentleman who presents to the hospital for fevers and nausea and was brought in by his brother. He was found to have elevated white blood cell count, lipase, and evidence of gallstone pancreatitis. 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 Brushings were performed, which were negative for malignancy. He was, therefore, consented for a laparoscopic, possible open cholecystectomy. RISKS AND BENEFITS: The risks and benefits of a laparoscopic, possible open cholecystectomy were explained. These included bleeding, infection, hernia, IN, DVT, PE, injury to surrounding structures including the liver, colon, bowel, bile ducts, vessel injury, nerve injury, bile leak, and retained stones as some of the possible complications. The patient understood and signed informed consents. DESCRIPTION OF PROCEDURE: The patient was placed supine on the operating room table. The patient underwent general endotracheal intubation. The abdomen was prepped and draped in the usual sterile fashion. A timeout was performed. A periumbilical incision was made, and a 5-mm optical trocar was inserted under direct visualization with the laparoscope. Pneumoperitoneum was then established. Subsequently, a 5-mm trocar was placed in the subxiphoid area and two 5-mm trocars were placed in the right upper quadrant. The 5-mm trocar at the periumbilical region was removed and a 10-mm trocar was inserted. The patient was placed in reverse Trendelenburg, right side up position. The gallbladder was noted and was retracted cephalad and laterally. Any overlying omental adhesions were carefully dissected. The peritoneum was dissected using electrocautery. The cystic duct followed by the cystic artery were circumferentially dissected, clipped and transected. The gallbladder was removed off the liver bed using electrocautery. Hemostasis of the liver bed and surrounding area was attained using electrocautery. The gallbladder was placed in an EndoCatch bag. Copious irrigation and suction were performed until clear. The gallbladder was removed from the abdominal cavity. The fascia at the 10-mm trocar site was closed using a 0-Vicryl suture. All incision sites were irrigated and Marcaine was injected. Hemostasis of all incision sites was noted. All incision sites were closed using 4-0 Biosyn. Sterile dressings were applied. The patient tolerated the procedure well and was transferred to the recovery room in stable condition. NATALIA PEREIRA M.D. [id number]
[2017-05-16] MEDS ORDERED: PT OWN MED DRAWER 7, Y5N ONE (09:34)
[2017-05-16] MEDS: AMOX TR/POT CLAV 875MG/125MG TABLETS (FP) PO SCH ×2 (09:35→17:06)
[2017-05-16] MEDS ORDERED: PANTOPRAZOLE 40 MG TABLET (FP) PO SCH (10:00)
--- NOTE | 2017-05-16 10:51 | PN ---
Progress Note (short form) - Note Progress Note: Post op day#1.S/p Laproscopic cholecystectomy under GA uneventful.Patient stable.No any anesthesia related problem.Patient DC from the anesthesia care.
--- NOTE | 2017-05-16 13:30 | PN ---
Progress Note, SHEAR HELPER - Note Progress Note: Good appetite. Messy but functional self feeding with good tolerance reported and observed.
--- NOTE | 2017-05-16 14:13 | PN ---
Progress Note (short form) - Note Progress Note: POD 1 Pain controlled Vital Signs Period Temp Pulse Resp BP Sys/Muhammad Pulse Ox Last 24 Hr 97.4 F-99.2 F 56-106 14-23 108-143/70-93 97-99 Abd soft, dressings dry CBCD WBC 10.8 K/mm3 (4.0-10.0) H D 05/16/17 06:30 RBC 4.55 M/mm3 (4.00-5.60) 05/16/17 06:30 Hgb 13.7 GM/dL (11.7-16.9) 05/16/17 06:30 Hct 40.1 % (35.4-49) 05/16/17 06:30 MCV 88.1 fl (80-96) 05/16/17 06:30 MCHC 34.1 g/dl (32.0-35.9) 05/16/17 06:30 RDW 12.7 % (11.9-15.9) 05/16/17 06:30 Plt Count 195 K/MM3 (134-434) 05/16/17 06:30 MPV 9.6 fl (7.5-11.1) 05/16/17 06:30 CMP Sodium 136 mmol/L (136-145) 05/16/17 06:30 Potassium 4.7 mmol/L (3.5-5.1) 05/16/17 06:30 Chloride 101 mmol/L (98-107) 05/16/17 06:30 Carbon Dioxide 26 mmol/L (21-32) 05/16/17 06:30 Anion Gap 9 (8-16) 05/16/17 06:30 BUN 13 mg/dL (7-18) 05/16/17 06:30 Creatinine 0.9 mg/dL (0.7-1.3) 05/16/17 06:30 Creat Clearance w eGFR > 60 (>60) 05/16/17 06:30 Calcium 8.6 mg/dL (8.5-10.1) 05/16/17 06:30 Total Bilirubin 0.5 mg/dL (0.2-1.0) D 05/16/17 06:30 AST 32 U/L (15-37) 05/16/17 06:30 ALT 31 U/L (12-78) 05/16/17 06:30 Alkaline Phosphatase 64 U/L (45-117) 05/16/17 06:30 Total Protein 6.2 g/dl (6.4-8.2) L 05/16/17 06:30 Albumin 3.2 g/dl (3.4-5.0) L 05/16/17 06:30 Diet Can discharge home Problem List - Problems (1) Gallstone pancreatitis Code(s): K85.10 - BILIARY ACUTE PANCREATITIS WITHOUT NECROSIS OR INFECTION (2) Choledocholithiasis with acute cholecystitis Code(s): K80.42 - CALCULUS OF BILE DUCT W ACUTE CHOLECYSTITIS W/O OBSTRUCTION
[2017-05-16 17:06] VITALS: BP 107/72; PULSE 101; TEMP 98.2
--- NOTE | 2017-05-17 15:32 | PATH ---
Surgical Pathology Report Patient Name: LB WILLARD Med. Rec. #: [id number] /Age/Gender: 1950 (Age: 66) / M Account: [id number] Location: [facility] MED/SURG Taken: 05/15/2017 Received: 05/16/2017 Reported: 05/17/2017 Physicians: Naveen Pereira M.D. Specimen(s) Received GALLBLADDER Clinical History Pancreatitis, gallstone Final Diagnosis GALLBLADDER, CHOLECYSTECTOMY: MARKED CHRONIC CHOLECYSTITIS AND CHOLELITHIASIS. Electronically Signed Jace Lugo M.D. Gross Description Received in formalin, labeled "gallbladder" is a 9.5 x 2.2 x 1.8 cm gallbladder with a 0.2 cm in length portion of cystic duct attached. The outer surface is fu-benavides and varies from smooth to shaggy. The lumen contains green, tenacious bile as well as numerous brown, irregular to fragmented cholelith ranging firm 0.1-0.8 cm in greatest dimension. The mucosa is fu and focally eroded. The wall of the gallbladder averages 0.1 cm in thickness. Private Detective sections are submitted in one cassette. /05/16/2017 saudi05/16/2017
== END 2017-05-16 18:15 | disposition home or self-care (01) | DRG 417 ==
LOC: JER 19:05 → JERBED 22:21 → UNDOADMIN 23:06 → JERBED 23:06 → J8W 05-09 04:19
PROVIDERS: ADMIT Family Medicine; ATTEND Family Medicine
PROC: BF11YZZ Fluoroscopy of Biliary and Pancreatic Ducts using Other Contrast (ICD-10-PCS; 2017-05-10)
PROC: 0F798ZZ Dilation of Common Bile Duct, Via Natural or Artificial Opening Endoscopic (ICD-10-PCS; principal; 2017-05-10 16:30)
PROC: 0FT44ZZ Resection of Gallbladder, Percutaneous Endoscopic Approach (ICD-10-PCS; 2017-05-15)
DX: K80.42 Calculus of bile duct with acute cholecystitis without obstruction (principal); K85.10 Biliary acute pancreatitis without necrosis or infection; I49.9 Cardiac arrhythmia, unspecified; F78 Other intellectual disabilities; K83.8 Other specified diseases of biliary tract; I10 Essential (primary) hypertension; E87.6 Hypokalemia
CPT/HCPCS: 36415; 71010-TC; 71260-TC; 74177-TC; 74330-TC; 76700-TC; 80048; 80053; 80061; 80307; 81003; 81015; 82009; 82150; 82550; 83036; 83690; 83721; 83735; 84439; 84443; 84484; 85025; 85027; 85610; 86480; 87040; 87086; 88104; 88304-TC; 93005; 93010; 93225; 93226; 93306-TC; 94760; 97116-GP; 97161-GP; 99283-25

== ENCOUNTER 2022-07-25 13:18 | Inpatient (IN) | payer OTHER ==
[2022-07-25] MEDS ORDERED: SODIUM CHLORIDE 1,000 ML IV STA (13:38)
[2022-07-25] MEDS ORDERED: PANTOPRAZOLE SODIUM 40 MG VIAL IVPUSH ONE (13:55)
[2022-07-25] MEDS ORDERED: PANTOPRAZOLE SODIUM 40 MG/100 ML BAG IVPB ONE (14:17)
[2022-07-25] MEDS ORDERED: PANTOPRAZOLE SODIUM 40 MG VIAL ONE (14:17)
[2022-07-25] MEDS ORDERED: ONDANSETRON 4 MG/2 ML VIAL IVPUSH ONE (14:27)
[2022-07-25] MEDS ORDERED: AZITHROMYCIN IVPB 500 MG in DEXTROSE 5%-WATER - 250 ML IVPB ONE (14:48)
[2022-07-25] MEDS ORDERED: VANCOMYCIN 1 GM in D5W (PRE-DOCKED) 1,000 MG/250 ML IVPB ONE (14:48)
[2022-07-25] MEDS ORDERED: PIPERACILLIN/TAZOB 4.5 GM 4.5 GM in DEXTROSE 5%-WATER 100 ML IVPB ONE (14:48)
[2022-07-25] MEDS: PANTOPRAZOLE SODIUM 80 MG in SODIUM CHLORIDE 100 ML IVPB SCH (14:50)
[2022-07-25] MEDS ORDERED: AZITHROMYCIN IVPB 500 MG/250 ML BAG IVPB ONE (15:16)
[2022-07-25] MEDS ORDERED: PIPERACILLIN/TAZOB 4.5 GM 4.5 GM/100 ML BAG IVPB ONE (15:16)
[2022-07-25 15:24] LABS: LACTIC ACID 6.3 mmol/L (0.4-2.0)
[2022-07-25 15:28] LABS: HEMATOCRIT 43.2 % (35.4-49); HEMOGLOBIN 14.1 GM/dL (11.7-16.9); MCH 29.1 pg (25.7-33.7); MCHC 32.6 g/dl (32.0-35.9); MEAN CELL VOLUME 89.3 fl (80-96); PLATELET COUNT 113 10^3/uL (134-434); RBC 4.84 M/mm3 (4.00-5.60); RDW 13.7 % (11.9-15.9); WHITE BLOOD COUNT 12.3 K/mm3 (4.0-10.0)
[2022-07-25] MEDS ORDERED: VANCOMYCIN/WATER FOR INJ (PEG) 1,000 MG/200 ML BAG IVPB ONE (15:29)
[2022-07-25] MEDS ORDERED: ONDANSETRON 4 MG/2 ML VIAL ONE (15:29)
[2022-07-25 15:33] LABS: INR 1.8 (0.83-1.09); PROTHROMBIN TIME (PATIENT) 20.8 SEC (9.7-13.0)
[2022-07-25 15:41] LABS: VENOUS BASE EXCESS -7.2 mmol/L (-2-2); VENOUS O2 SATURATION 64.8 % (70-80); VENOUS PH 7.346 (7.310-7.410)
[2022-07-25 16:05] LABS: ALBUMIN 2.8 g/dl (3.4-5.0); BLOOD UREA NITROGEN 53.8 mg/dL (7-18); CALCIUM 8.4 mg/dL (8.5-10.1)
[2022-07-25 16:08] LABS: CREATININE 2.6 mg/dL (0.55-1.3)
[2022-07-25] MEDS ORDERED: SODIUM CHLORIDE 0.9% 500 ML INFUS.BAG IV ONE (16:17)
[2022-07-25 16:18] LABS: ANISOCYTOSIS 0; MACROCYTOSIS 0
[2022-07-25] MEDS ORDERED: PHYTONADIONE 10 MG/1 ML AMP IVPB ONE (16:56)
[2022-07-25] MEDS ORDERED: PNEUMOC 20-VAL CONJ-DIP CRM/PF 0.5 ML SYRINGE IM ONE (18:19)
[2022-07-25] MEDS ORDERED: FLU VACC QS2022-23(6MOS UP)/PF 60 MCG/0.5 ML SYRINGE IM ONE (19:00)
[2022-07-25 19:06] LABS: EPI CELLS >36 /uL (0-25.1); HYALINE CASTS 6 /uL (0-3.1); URINE APPEARANCE TURBID; URINE BILIRUBIN 2+ (NEGATIVE); URINE COLOR DK YELLOW; URINE GLUCOSE (UA) TRACE (NEGATIVE); URINE KETONE NEGATIVE (NEGATIVE); URINE LEUK ESTERASE TRACE (NEGATIVE); URINE NITRITE POSITIVE (NEGATIVE); URINE PROTEIN 1+ (NEGATIVE); URINE WBC 242 /uL (0-25.8)
[2022-07-25] MEDS: SODIUM CHLORIDE 1,000 ML IV SCH (20:08)
[2022-07-25 20:41] LABS: URINE BACTERIA 2.8 /uL (0-1359); URINE RBC 79.9 /uL (0-23.9)
[2022-07-25 21:41] LABS: BASO % 0.1 % (0-2.0); EOS % 0.2 % (0-4.5); HEMATOCRIT 42.4 % (35.4-49); HEMOGLOBIN 14.2 GM/dL (11.7-16.9); LYMPH % 2.1 % (8-40); MCH 29.7 pg (25.7-33.7); MCHC 33.5 g/dl (32.0-35.9); MEAN CELL VOLUME 88.7 fl (80-96); MEAN PLT VOLUME 10.5 fl (7.5-11.1); MONO % 1.9 % (3.8-10.2); NEUT % 95.7 % (42.8-82.8); PLATELET COUNT 88 10^3/uL (134-434); RBC 4.79 M/mm3 (4.00-5.60); RDW 13.8 % (11.9-15.9); WHITE BLOOD COUNT 11.8 K/mm3 (4.0-10.0)
[2022-07-25] MEDS: MUPIROCIN 2% TOPICAL OINTMENT FOR DECOLONIZATION NS SCH (21:52)
[2022-07-25 21:57] LABS: INR 1.69 (0.83-1.09); PROTHROMBIN TIME (PATIENT) 19.5 SEC (9.7-13.0)
[2022-07-25 22:00] LABS: ACTIVATED PTT 30.4 SECONDS (25.2-36.5)
[2022-07-25] MEDS ORDERED: CHLORHEXIDINE GLUCONATE 4% CLEANSER FOR DECOLONIZATION TP SCH (22:00)
[2022-07-25 22:12] LABS: BILIRUBIN,DIRECT 5.4 mg/dL (0.0-0.2)
[2022-07-25 22:39] LABS: ANISOCYTOSIS 1+; MACROCYTOSIS 0
[2022-07-25 23:03] LABS: LACTIC ACID 2.5 mmol/L (0.4-2.0)
[2022-07-26] MEDS: PANTOPRAZOLE SODIUM 80 MG in SODIUM CHLORIDE 100 ML IVPB SCH (02:30)
[2022-07-26] MEDS: SODIUM CHLORIDE 1,000 ML IV SCH ×2 (06:37→11:32)
[2022-07-26 07:27] LABS: INR 1.43 (0.83-1.09); PROTHROMBIN TIME (PATIENT) 16.5 SEC (9.7-13.0)
[2022-07-26 07:30] LABS: ACTIVATED PTT 29.8 SECONDS (25.2-36.5)
[2022-07-26 07:37] LABS: MAGNESIUM 1.8 mg/dL (1.8-2.4)
[2022-07-26 07:38] LABS: ALBUMIN 2.5 g/dl (3.4-5.0); BLOOD UREA NITROGEN 50.2 mg/dL (7-18)
[2022-07-26 07:39] LABS: CREATININE 1.8 mg/dL (0.55-1.3)
[2022-07-26 07:44] LABS: BILIRUBIN,TOTAL 6.6 mg/dL (0.2-1); TOT PROT 5.4 g/dl (6.4-8.2)
[2022-07-26] MEDS ORDERED: PIPERACILLIN/TAZOB 4.5 GM 4.5 GM in DEXTROSE 5%-WATER 100 ML IVPB SCH ×2 (08:35→10:00)
[2022-07-26] MEDS: PIPERACILLIN/TAZOB 4.5 GM 4.5 GM in DEXTROSE 5%-WATER 100 ML IVPB SCH ×2 (09:12→17:35)
[2022-07-26] MEDS: MUPIROCIN 2% TOPICAL OINTMENT FOR DECOLONIZATION NS SCH (09:12)
[2022-07-26] MEDS ORDERED: SODIUM CHLORIDE 500 ML IV STA (09:15)
[2022-07-26] MEDS ORDERED: morphine CARPU-JECT 2 MG/1 ML DISP.SYRIN IVPUSH ONE (09:30)
[2022-07-26] MEDS ORDERED: AZITHROMYCIN IVPB 500 MG/250 ML BAG IVPB SCH (10:00)
[2022-07-26] MEDS ORDERED: CEFTRIAXONE 1 GM in DEXTROSE 5%-WATER - 50 ML IVPB SCH (10:00)
[2022-07-26] MEDS ORDERED: PANTOPRAZOLE SODIUM 40 MG VIAL IVPUSH SCH (10:15)
[2022-07-26] MEDS ORDERED: VANCOMYCIN/WATER FOR INJ (PEG) 750 MG/150 ML BAG IVPB ONE (11:00)
[2022-07-26 11:38] LABS: ARTERIAL BLD GAS O2 SATURATION 99.2 % (95-98); ARTERIAL BLOOD GAS BASE EXCESS -5.7 mmol/L (-2-2); ARTERIAL BLOOD GAS PO2 171.1 mmHg (80-100); ARTERIAL BLOOD GAS pH 7.418 (7.350-7.450)
[2022-07-26 11:39] LABS: ALLENS TEST POSITIVE
[2022-07-26 16:02] VITALS: BMI 28.0
[2022-07-26 18:31] VITALS: BP 113/77; PULSE 107; RESP 32; TEMP 99.7
[2022-07-27 18:12] LABS: GLIADIN ANTIBODY IGA 7 units (0-19); GLIADIN ANTIBODY IGG 3 units (0-19); TRANSGLUTAMINASE IGG < 2 U/mL (0-5)
== END 2022-07-26 19:16 | disposition short-term general hospital (02) | DRG 871 ==
LOC: SUPCPDRO 13:18 → JER 13:18 → JERBED 15:40 → JICU 17:39
PROVIDERS: ADMIT Family Medicine; ATTEND Family Medicine
DX: A41.9 Sepsis, unspecified organism (principal); J69.0 Pneumonitis due to inhalation of food and vomit; N17.9 Acute kidney failure, unspecified; K92.0 Hematemesis; E87.20 Acidosis, unspecified; K80.30 Calculus of bile duct with cholangitis, unspecified, without obstruction; I10 Essential (primary) hypertension; R62.50 Unspecified lack of expected normal physiological development in childhood; R74.01 Elevation of levels of liver transaminase levels; K83.8 Other specified diseases of biliary tract; D69.6 Thrombocytopenia, unspecified
CPT/HCPCS: 36415; 36430; 36600; 71045-TC-FY; 74176-TC; 76700-TC; 80048; 80053; 81003; 82248; 82272; 82570; 82784; 82803; 83516; 83540; 83605; 83690; 83735; 84100; 84300; 84484; 85025; 85379; 85384; 85610; 85730; 86038; 86705; 86708; 86850; 86900; 86901; 86922; 87040; 87086; 87186; 87340; 87517; 87522; 93005; 93010; 99285-25; C9803-CS; P9058; U0003; U0005